=== PATIENT | female | born 1960 | race Caucasian/White ===

== ENCOUNTER → 2018-07-24 15:24 | Outpatient (CLI) | payer OTHER, SELFPAY ==
--- NOTE | 2018-07-24 | DI.US.S_ITS ---
PROCEDURE: US PELVIC COMPLETE INDICATIONS: ROUTINE TECHNIQUE: Real-time scanning was performed of the pelvic organs, with image documentation. Additional endovaginal scanning was necessary due to incomplete visualization of the adnexal and endometrial structures by transabdominal scanning. COMPARISON: [facility], , PELVIC COMPLETE, 07/04/2016, 8:37. FINDINGS: Transabdominal scanning: Limited scanning through the kidneys shows no hydronephrosis. No pathologic free abdominal or pelvic fluid. Endovaginal scanning: Uterus: Uterus is normal in size at 7.7 x 4.1 x 3.0 cm. The endometrium measures 3.1 mm in combined thickness. 2 intramural fibroids, largest measuring 1.6 x 1.5 x 1.6 cm appearing similar to prior exam. Ovaries: Right ovary not visualized. A normal-sized measuring 1.9 x 1.4 x 1.7 cm. There are multiple punctate non-shadowing echogenic foci seen likely of no clinical significance. IMPRESSION: 1. Right ovary not visualized and grossly normal appearance of the left ovary. 2. No change in 2 small intramural fibroids. Dictated by: Lui Crisostomo [facility] Interpreted: Fidencio Soto MD on 07/24/2018 at 16:40 Approved by: Fidencio Soto M.D. on 07/24/2018 at 17:25
--- NOTE | 2018-07-24 | DI.MG.S_ITS ---
BILATERAL DIGITAL SCREENING MAMMOGRAM 3D/2D WITH CAD: 07/24/2018 CLINICAL: Routine screening. Family history of breast cancer. Comparison is made to exam dated: 07/04/2016 mammogram - [facility]. There are scattered fibroglandular elements in both breasts. Current study was also evaluated with a Computer Aided Detection (CAD) system. No significant masses, calcifications, or other findings are seen in either breast. There has been no significant interval change. IMPRESSION: NEGATIVE There is no mammographic evidence of malignancy. A 1 year screening mammogram is recommended. This exam was interpreted at Station ID: [id number]. NOTE: For mammograms, a report in lay terms will be sent to the patient. Approximately 15% of breast malignancies will not be visualized mammographically. In the management of a palpable breast mass, a negative mammogram must not discourage biopsy of a clinically suspicious lesion. Electronically Signed By: Jose menezes/roseline:07/24/2018 16:03:29 letter sent: Normal Exam ACR BI-RADS Category 1: Negative [id number]
== END ==
PROVIDERS: PCP Family Medicine; Visit Provider Family Medicine
DX: Z12.31 Encounter for screening mammogram for malignant neoplasm of breast (principal); D25.1 Intramural leiomyoma of uterus; Z80.3 Family history of malignant neoplasm of breast
CPT/HCPCS: 76856; 77063; 77067

== ENCOUNTER → 2018-09-23 18:35 | Outpatient (CLI) | payer OTHER, SELFPAY | PROVIDERS: PCP Family Medicine; Visit Provider Physician Assistant | DX: N39.0 Urinary tract infection, site not specified (principal) | CPT/HCPCS: 87086 ==

== ENCOUNTER → 2018-11-05 13:52 | Outpatient (CLI) | payer OTHER, SELFPAY ==
[2018-11-05 15:27] LABS: Estimated Glomerular Filt Rate > 60.0 mL/min (>60)
== END ==
PROVIDERS: PCP Family Medicine; Visit Provider Family Medicine
DX: R10.31 Right lower quadrant pain (principal)
CPT/HCPCS: 36415; 82565

== ENCOUNTER → 2018-11-06 13:50 | Outpatient (CLI) | payer OTHER, SELFPAY ==
--- NOTE | 2018-11-06 | DI.CT.S_ITS ---
PROCEDURE: CT ABDOMEN PELVIS W CON INDICATIONS: ABDOMINAL PAIN/RIGHT LOWER QUADRANT TECHNIQUE: After the administration of oral and intravenous contrast, 5 mm thick sections acquired from the diaphragms to the symphysis. 5 mm thick coronal and sagittal reformats were performed. For radiation dose reduction, the following was used: automated exposure control, adjustment of mA and/or kV according to patient size. COMPARISON: None. FINDINGS: Image quality: Excellent. ABDOMEN: Lung bases: Lung bases are clear. Heart size is normal. Solid organs: Liver is normal in size and enhancement. There is a 1.3 x 1.6 cm hypodensity that measures higher than water density, at the junction of the right anterior and left medial hepatic segments, seen on series 2 image 24. Gallbladder appears partially contracted. Biliary system is non-dilated. Pancreas enhances normally. Spleen is normal in size and enhancement. No adrenal nodules. Kidneys are normal in size and enhancement, without hydronephrosis. Peritoneum and bowel: Stomach, small bowel, and colon loops are normal in caliber and wall thickness. No free fluid or air. Nodes and vessels: No retroperitoneal or mesenteric adenopathy. Aorta and inferior vena cava are normal in caliber. Miscellaneous: No ventral hernias. PELVIS: Genitourinary: Bladder wall thickness is normal. Miscellaneous: No inguinal hernias or adenopathy. At the right lower quadrant a normal appendix is identified. No inflammation in this area is present. Bones: No suspicious bony lesions. No vertebral body compression fractures. IMPRESSION: Isolated finding of the 1.3 x 1.6 cm superior hepatic hypodensity that does not appear to represent a cyst. This structure may represent an atypical hemangioma and is close to the anterior epigastrium skin surface such that a targeted single organ ultrasound directed to that site may assist in establishing etiology. Normal appendix right lower quadrant. Source of right lower quadrant pain is not seen. Dictated by: Ed El M.D. on 11/06/2018 at 14:57 Approved by: Ed El M.D. on 11/06/2018 at 15:00
== END ==
PROVIDERS: PCP Family Medicine; Visit Provider Family Medicine
DX: R10.31 Right lower quadrant pain (principal)
CPT/HCPCS: 74177

== ENCOUNTER → 2018-11-18 08:03 | Outpatient (CLI) | payer OTHER, SELFPAY ==
--- NOTE | 2018-11-18 | DI.US.S_ITS ---
PROCEDURE: US ABDOMEN LIMITED INDICATIONS: LESION OF LIVER TECHNIQUE: Real-time focused scanning was performed of the abdomen, with image documentation. COMPARISON: [facility], CT, CT ABDOMEN PELVIS W CON, 11/06/2018, 14:36. FINDINGS: On the prior recent CT examination, there was a low-density lesion seen within the central anterior liver. This lesion does not seen on these ultrasound images. The liver demonstrates normal size. The liver demonstrates generalized increased echogenicity. This decreases ultrasound sensitivity for detection of hepatic masses. IMPRESSION: Nonvisualization by ultrasound of the low-density lesion seen on the prior CT. For further evaluation, please consider a dedicated liver protocol MRI, without and with contrast (assuming that there is no contraindication). The liver demonstrates increased echogenicity. This finding is nonspecific, yet it is attributed to fatty infiltration. Dictated by: Gilbert Allen M.D. on 11/18/2018 at 7:42 Approved by: Gilbert Allen M.D. on 11/18/2018 at 7:44
== END ==
PROVIDERS: PCP Family Medicine; Visit Provider Family Medicine
DX: K76.9 Liver disease, unspecified (principal)
CPT/HCPCS: 76705

== ENCOUNTER → 2019-05-03 13:48 | Outpatient (CLI) | payer OTHER, SELFPAY | PROVIDERS: PCP Family Medicine; Visit Provider Nurse Practitioner | DX: R30.0 Dysuria (principal) | CPT/HCPCS: 87086 ==

== ENCOUNTER → 2020-06-23 14:31 | Outpatient (CLI) | payer OTHER, SELFPAY ==
[2020-06-23] MEDS: COVID-19 VACC(MODERNA-1)/PF 100 MCG/0.5 ML VIAL IM (14:38)
== END ==
PROVIDERS: PCP Family Medicine; Visit Provider Internal Medicine
DX: Z23 Encounter for immunization (principal)
CPT/HCPCS: 0011A; 91301

== ENCOUNTER → 2020-07-21 14:10 | Outpatient (CLI) | payer OTHER, SELFPAY ==
[2020-07-21] MEDS: COVID-19 VACC #2, MRNA(MOD) 100 MCG/0.5 ML VIAL IM (14:20)
== END ==
PROVIDERS: PCP Family Medicine; Visit Provider Internal Medicine
DX: Z23 Encounter for immunization (principal)
CPT/HCPCS: 0012A; 91301

== ENCOUNTER → 2020-08-11 11:48 | Outpatient (CLI) | payer OTHER, SELFPAY ==
[2020-08-11 12:16] LABS: Add Manual Diff / Slide Review NO; Basophils Absolute Auto 0 /uL (0-100); Basophils Percent Auto 0.9 % (0-2); Eosinophils Absolute Auto 100 /uL (0-450); Eosinophils Percent Auto 1.6 % (2-4); Hematocrit 41.9 % (36-46); Hemoglobin 14.2 g/dL (12.0-16.0); Lymphocytes Absolute Auto 1000 /uL (1100-4500); Mean Corpuscular Hemoglobin 31.1 PG (26-34); Mean Corpuscular Volume 91.6 fL (80-100); Monocytes Absolute Auto 500 /uL (0-900); Monocytes Percent Auto 9.6 % (3-14); Neutrophils Absolute Auto 3300 /uL (1500-7000); Neutrophils Percent Auto 67.9 % (50-75); Platelet Count 174 X10^3/uL (150-400); Red Blood Cell Count 4.57 X10^6/uL (4.0-5.2); Red Cell Distribution Width 13.3 % (11.6-14.8); White Blood Cell Count 4.8 X10^3/uL (4.5-11.0)
[2020-08-11 12:38] LABS: Alanine Aminotransferase 26 IU/L (<35); Albumin 4.3 g/dL (3.5-5.0); Albumin Globulin Ratio 1.5 (1.0-2.8); Alkaline Phosphatase 79 U/L (38-126); Aspartate Aminotransferase 28 IU/L (14-36); BUN Creatinine Ratio 17.3 (6-22); Bilirubin Total 0.5 mg/dL (0.2-1.3); Blood Urea Nitrogen 13 mg/dL (7-17); Calcium 9.7 mg/dL (8.4-10.2); Carbon Dioxide 27 mmol/L (22-32); Chloride 106 mmol/L (98-107); Cholesterol 165 mg/dL (140-199); Estimated Glomerular Filt Rate > 60.0 mL/min (>60); Globulin 2.8 g/dL (1.7-4.1); Glucose 103 mg/dL (80-110); HDL Cholesterol 51 mg/dL (40-60); HEMOLYSIS < 15 (0-50); LDL Cholesterol Calculated 94 mg/dL (<100); Potassium 4.2 mmol/L (3.4-5.1); Sodium 137 mmol/L (137-145); Total Protein 7.1 g/dL (6.3-8.2); Triglycerides 101 mg/dL (35-150)
[2020-08-11 17:49] LABS: Vitamin D 25 Hydroxy (D3) 28.9 ng/mL (30.0-100.0)
[2020-08-12 07:14] LABS: HBsAg Screen Negative (Negative); Hepatitis A Antibody IgM Negative (Negative); Hepatitis B Core Antibody IgM Negative (Negative); Hepatitis C Antibody <0.1 s/co ratio (0.0-0.9)
== END ==
PROVIDERS: PCP Registered Nurse; Referring Provider Registered Nurse; Visit Provider Registered Nurse
DX: D64.9 Anemia, unspecified (principal); K76.9 Liver disease, unspecified; Z78.0 Asymptomatic menopausal state; E78.5 Hyperlipidemia, unspecified
CPT/HCPCS: 36415; 80053; 80061; 80074; 82306; 85025

== ENCOUNTER 2021-05-16 13:45 | Inpatient (IN) | payer OTHER, SELFPAY ==
[2021-05-16] VITALS (15 sets, daily range): BP systolic 131–185; BP diastolic 69–103; PULSE 103–130; RESP 16–23; TEMP 37.6–38.7; O2SAT 95–99; BMI 41.9
--- NOTE | 2021-05-16 13:52 | DI.RAD.S_ITS ---
PROCEDURE: XR CHEST 1V INDICATIONS: chest pain TECHNIQUE: One view of the chest was acquired. COMPARISON: None. FINDINGS: Surgical changes and devices: None. Lungs and pleura: Lungs are clear. No pleural effusions or pneumothorax. Mediastinum: Mediastinal contours appear normal. Heart size is normal. Bones and chest wall: No suspicious bony lesions. Overlying soft tissues appear unremarkable. IMPRESSION: No acute cardiopulmonary disease process. Dictated by: Emili Coto MD, PhD on 05/16/2021 at 14:46 Approved by: Emili Coto MD, PhD on 05/16/2021 at 14:46
[2021-05-16] MEDS: ASPIRIN 81 MG CHEW TAB 324 MG PO (13:59)
[2021-05-16 14:09] LABS: Add Manual Diff / Slide Review NO; Basophils Absolute Auto 0 /uL (0-100); Basophils Percent Auto 0.3 % (0-2); Eosinophils Absolute Auto 0 /uL (0-450); Eosinophils Percent Auto 0.1 % (2-4); Hematocrit 41.4 % (36-46); Hemoglobin 14.1 g/dL (12.0-16.0); Lymphocytes Absolute Auto 300 /uL (1100-4500); Lymphocytes Percent Auto 2.7 % (25-40); Mean Corpuscular Hemoglobin 31.4 PG (26-34); Mean Corpuscular Volume 92.6 fL (80-100); Monocytes Absolute Auto 700 /uL (0-900); Monocytes Percent Auto 5.5 % (3-14); Neutrophils Absolute Auto 11500 /uL (1500-7000); Neutrophils Percent Auto 91.4 % (50-75); Platelet Count 131 X10^3/uL (150-400); Red Blood Cell Count 4.47 X10^6/uL (4.0-5.2); Red Cell Distribution Width 13.5 % (11.6-14.8); White Blood Cell Count 12.6 X10^3/uL (4.5-11.0)
[2021-05-16 14:19] LABS: INR 1.2 (0.9-1.3); Prothrombin Time 13.6 SECONDS (10.1-12.7)
[2021-05-16 14:22] LABS: PTT Partial Thromboplastin Tim 31 SECONDS (26.4-36.2)
[2021-05-16 14:30] LABS: Alanine Aminotransferase 30 IU/L (<35); Albumin 4.5 g/dL (3.5-5.0); Albumin Globulin Ratio 1.6 (1.0-2.8); Alkaline Phosphatase 80 U/L (38-126); Aspartate Aminotransferase 33 IU/L (14-36); BUN Creatinine Ratio 13.9 (6-22); Bilirubin Total 1.2 mg/dL (0.2-1.3); Blood Urea Nitrogen 11 mg/dL (7-17); Calcium 9.4 mg/dL (8.4-10.2); Carbon Dioxide 25 mmol/L (22-32); Chloride 101 mmol/L (98-107); Creatine Kinase 61 U/L (30-135); Estimated Glomerular Filt Rate > 60.0 mL/min (>60); Globulin 2.9 g/dL (1.7-4.1); Glucose 130 mg/dL (80-110); HEMOLYSIS < 15 (0-50); Lipase 53 U/L (23-300); Potassium 3.9 mmol/L (3.4-5.1); Sodium 135 mmol/L (137-145); Total Protein 7.4 g/dL (6.3-8.2)
[2021-05-16 14:42] LABS: NT-proBNP (BNP-Adult 18+) 1960 pg/mL (<125); Troponin I 0.038 ng/mL (0.01-0.034)
[2021-05-16 15:09] LABS: COVID19 -Nasal RAPID Negative (Negative)
[2021-05-16 15:30] LABS: D Dimer 317 ng/mL (<230)
[2021-05-16 16:26] LABS: Troponin I 0.032 ng/mL (0.01-0.034)
--- NOTE | 2021-05-16 18:29 | ED_ITS ---
HPI - Chest Pain General Chief Complaint: Chest Pain Stated Complaint: Left arm pain/neck pain Time Seen by Provider: 05/16/21 13:52 Source: patient Mode of arrival: Ambulatory Limitations: no limitations History of Present Illness HPI narrative: Patient is a 61-year-old female. Here for evaluation of left arm pain and neck pain and chest discomfort. States that she woke up this morning with she describes as a burning sensation in her arms and legs and knees. She is vaccinated against COVID. Started having other potential COVID like symptoms to include headaches and subjective fevers. She decided to come and get tested for COVID. Initially went to the walk-in clinic. Was told that it was going to be several hours before she was seen. She was waiting in the parking lot to be seen when she started to have chest pressure and pain in her left arm. She has never had this in the past. Did not get worse with palpation and movement. No coughing. Decided to come to the emergency department. The time of my evaluation her symptoms have improved. She has never had risk stratification testing for coronary artery disease. She did receive aspirin prior to my evaluation. Related Data Home Medications Medication Instructions Recorded Confirmed cholecalciferol (vitamin D3) 10 #0 09/17/17 08/11/20 mcg (400 unit) chewable tablet (Vitamin D3) coQ10 (ubiquinol) 100 mg capsule #0 09/17/17 08/11/20 multivitamin (Multiple Vitamins) 1 tab PO QDAY #0 09/17/17 08/11/20 oregano oil 1,500 mg capsule 1,500 mg PO #0 09/17/17 08/11/20 d-mannose ea PO 08/11/20 08/11/20 honey 100 % topical gel (Manuka ea TOPICAL 08/11/20 08/11/20 Honey) milk thistle 500 mg capsule 500 mg PO DAILY 08/11/20 08/11/20 turmeric 400 mg capsule mg PO 08/11/20 08/11/20 Previous Rx's Medication Instructions Recorded albuterol sulfate 90 mcg/actuation 2 puff INHALATION Q4-6H PRN #18 g 08/11/20 aerosol inhaler Allergies Allergy/AdvReac Type Severity Reaction Status Date / Time ciprofloxacin [From CIPRO] AdvReac Unknown C. Diff Verified 08/11/20 11:09 Review of Systems Review of Systems ROS Unobtainable: All systems reviewed & are unremarkable except as noted in HPI and below Constitutional Constitutional: Reports system reviewed and no additional complaints, except as documented ENT Ears, Nose, Mouth, and Throat: Reports system reviewed and no additional complaints, except as documented Cardiovascular Cardiovascular: Reports system reviewed and no additional complaints, except as documented Respiratory Respiratory: Reports system reviewed and no additional complaints, except as documented Gastrointestinal Gastrointestinal: Reports system reviewed and no additional complaints, except as documented Genitourinary Genitourinary: Reports system reviewed and no additional complaints, except as documented Musculoskeletal Musculoskeletal: Reports system reviewed and no additional complaints, except as documented Integumentary/Breasts Skin/Breast: Reports system reviewed and no additional complaints, except as documented Neurologic Neurologic: Reports system reviewed and no additional complaints, except as documented Hematologic/Lymphatic On Anticoagulants: No Allergic/Immunologic Allergic/Immunologic: Reports system reviewed and no additional complaints, except as documented Patient History Medical History Adrenal abnormality (~1989) Amenorrhea (~2015) Anemia (~2010) Asthma (~2008) Chicken pox (~1962) Chronic back pain (~2018) Chronic cough Colon polyps (~1999) Fibroids (~2016) Heavy menstrual period (~2010) Kidney disease (~1988) Liver disease (~2018) Low back pain (~2017) Measles (~1965) Menopause (~2016) Mononucleosis (~1978) Mumps (~1965) Painful menstrual periods Proteinuria (~1988) Surgical History Anesthesia History of colonoscopy History of laparoscopy (~1991) Status post biopsy of uterine cervix (~2018) Family History Father Diabetes mellitus History of heart disease Hypertension Colon cancer Hyperlipidemia Mother Ovarian cancer Smoker Grandfather Cancer Grandmother Diabetes mellitus Colon cancer Grandmother Alzheimer's disease Breast cancer Grandfather History of heart disease Family/Other Asthma Social History household members: none Smoking Status: Never smoker alcohol intake: current substance use type: does not use Smoking Status: Never smoker Exam Initial Vital Signs Initial Vital Signs: Vital Signs Temperature 99.7 F H 05/16/21 14:17 Pulse Rate 123 H 05/16/21 14:17 Respiratory Rate 18 05/16/21 14:17 Blood Pressure 185/103 H 05/16/21 14:17 Pulse Oximetry 99 05/16/21 14:17 Const General: cooperative, healthy appearing, comfortable and well developed [facility] Head: normal to inspection and normocephalic Eyes General: appearance normal, both eyes and all related structures Chest Chest: normal inspection of the chest Resp Effort & Inspection: normal respiratory effort Auscultation: clear to auscultation bilaterally Cardio Rate: tachycardic Rhythm: regular rhythm Pulses: radial pulses present GI Inspection: normal to inspection and non-distended Palpation: soft Back/Spine/Pelvis Back: normal to inspection Skin General: no rashes or lesions noted Neuro General: patient alert, patient awake, patient oriented x3 and moves all extremities Cognition: normal cognition Speech: speech normal Gait: normal gait Extrem General: normal to inspection, capillary refill normal and No edema Psych Appearance: grossly normal and well kempt Course Orders Ordered: ED Orders 05/16/21 15:55 Trop I [Troponin I] Stat 05/16/21 18:29 CT angio chest PE protocol Stat 05/16/21 18:30 Urine Culture Stat Urine Microscopic Stat 05/16/21 20:00 NM isabela perf SPECT rest & str Urgent 05/16/21 20:01 EC echo doppler complete Urgent Education, smoking cessation ONGOING 05/16/21 20:57 A1C [Hemoglobin A1C% w Est Avg Glu] Stat Lipid Panel Routine Magnesium Urgent Procalcitonin Urgent TSH w/ Reflex to FT4 Stat Troponin I Q8H 05/16/21 21:10 Respiratory Panel (Film Array) Stat 05/17/21 04:00 Troponin I Q8H 05/17/21 05:00 Basic Metabolic Panel Routine Complete Blood Count AUTO DIFF Routine NT-proBNP (BNP-Adult 18+) Routine Acetaminophen (Acetaminophen 325 Mg Tablet) 650 mg PO Q6HR PRN PRN Reason: Fever/Mild Pain (1-3) Last Admin: 05/16/21 21:28 Dose: 650 mg Documented by: KKNOTT Enoxaparin Sodium (Enoxaparin 40 Mg/0.4 Ml Syringe) 40 mg SUBCUT DAILY HOLGER Lactated Ringer's (Lactated Ringers) 1,000 mls @ 1,000 mls/hr IV BOLUS ONE Stop: 05/17/21 01:44 Lisinopril (Lisinopril 10 Mg Tablet) 10 mg PO DAILY HOLGER Morphine Sulfate (Morphine 2 Mg/Ml Inj) 2 mg IV Q5MIN PRN PRN Reason: Chest Pain Naloxone HCl (Naloxone 0.4 Mg/Ml Vial) 0.2 mg IV Q2MIN PRN PRN Reason: Opiate Reversal Nitroglycerin (Nitroglycerin 0.4 Mg Sl Tab) 0.4 mg SL [id number] PRN PRN Reason: Chest Pain Discontinued Medications Aspirin (Aspirin 81 Mg Chew Tab) 324 mg PO NOW ONE Stop: 05/16/21 13:53 Last Admin: 05/16/21 13:59 Dose: 324 mg Documented by: VINCENT Lactated Ringer's (Lactated Ringers) 500 mls @ 500 mls/hr IV BOLUS ONE Stop: 05/17/21 01:39 Ketorolac Tromethamine (Ketorolac 30 Mg/Ml Vial) 30 mg IV NOW ONE Stop: 05/16/21 21:12 Last Admin: 05/16/21 21:30 Dose: 30 mg Documented by: LUCIAN Lisinopril (Lisinopril 10 Mg Tablet) 10 mg PO NOW ONE Stop: 05/16/21 20:09 Last Admin: 05/16/21 21:08 Dose: 10 mg Documented by: LUCIAN Vital Signs Vital signs: Vital Signs - 8 hr 05/16/21 17:00 05/16/21 17:30 05/16/21 18:00 Pulse Rate 112 H 112 H 113 H Respiratory Rate 16 19 20 Blood Pressure 142/82 H 131/70 Pulse Oximetry 97 95 96 05/16/21 18:49 05/16/21 18:57 05/16/21 19:00 Pulse Rate 108 H 107 H 103 H Respiratory Rate 23 19 Blood Pressure 149/74 H 147/76 H Pulse Oximetry 98 95 99 05/16/21 19:30 Pulse Rate 111 H Respiratory Rate 22 Blood Pressure 151/71 H Pulse Oximetry 98 MDM - Chest Pain Lab Data Attestation: I reviewed the patient's lab results. Result diagrams: 05/16/21 14:00 05/16/21 14:00 Labs: Lab Results 05/16/21 05/16/21 05/16/21 Range/Units 14:00 14:00 14:00 WBC 12.6 H (4.5-11.0) X10^3/uL RBC 4.47 (4.0-5.2) X10^6/uL Hgb 14.1 (12.0-16.0) g/dL Hct 41.4 (36-46) % MCV 92.6 (80-100) fL MCH 31.4 (26-34) PG MCHC 34.0 (30-36) % RDW 13.5 (11.6-14.8) % Plt Count 131 L (150-400) X10^3/uL Neut % (Auto) 91.4 H (50-75) % Lymph % (Auto) 2.7 L (25-40) % Park % (Auto) 5.5 (3-14) % Eos % (Auto) 0.1 L (2-4) % Baso % (Auto) 0.3 (0-2) % Neut # (Auto) 54167 H (5610-7578) /uL Lymph # (Auto) 300 L (7735-1695) /uL Park # (Auto) 700 (0-900) /uL Eos # (Auto) 0 (0-450) /uL Baso # (Auto) 0 (0-100) /uL PT 13.6 H (10.1-12.7) SECONDS INR 1.2 (0.9-1.3) APTT 31 (26.4-36.2) SECONDS D-Dimer (<230) ng/mL Sodium 135 L (137-145) mmol/L Potassium 3.9 (3.4-5.1) mmol/L Chloride 101 (98-107) mmol/L Carbon Dioxide 25 (22-32) mmol/L BUN 11 (7-17) mg/dL Creatinine 0.79 (0.52-1.04) mg/dL Estimated GFR > 60.0 (>60) mL/min BUN/Creatinine Ratio 13.9 (6-22) Glucose 130 H (80-110) mg/dL Calcium 9.4 (8.4-10.2) mg/dL Total Bilirubin 1.2 (0.2-1.3) mg/dL AST 33 (14-36) IU/L ALT 30 (<35) IU/L Alkaline Phosphatase 80 (38-126) U/L Total Creatine Kinase 61 (30-135) U/L CK-MB (CK-2) TNP CK-MB (CK-2) Rel Index TNP Troponin I 0.038 H (0.01-0.034) ng/mL NT-Pro-B Natriuret Pep 1960 H (<125) pg/mL Total Protein 7.4 (6.3-8.2) g/dL Albumin 4.5 (3.5-5.0) g/dL Globulin 2.9 (1.7-4.1) g/dL Albumin/Globulin Ratio 1.6 (1.0-2.8) Lipase 53 (23-300) U/L Urine RBC (0-5/HPF) Urine WBC (0-5/HPF) Ur Squamous Epith Cells (0-5/HPF) Amorphous Sediment Urine Bacteria (None) Ur Culture Indicated? SARS-CoV-2 (PCR) (Negative) 05/16/21 05/16/21 05/16/21 Range/Units 14:00 14:26 15:55 WBC (4.5-11.0) X10^3/uL RBC (4.0-5.2) X10^6/uL Hgb (12.0-16.0) g/dL Hct (36-46) % MCV (80-100) fL MCH (26-34) PG MCHC (30-36) % RDW (11.6-14.8) % Plt Count (150-400) X10^3/uL Neut % (Auto) (50-75) % Lymph % (Auto) (25-40) % Park % (Auto) (3-14) % Eos % (Auto) (2-4) % Baso % (Auto) (0-2) % Neut # (Auto) (6308-0555) /uL Lymph # (Auto) (6217-8233) /uL Park # (Auto) (0-900) /uL Eos # (Auto) (0-450) /uL Baso # (Auto) (0-100) /uL PT (10.1-12.7) SECONDS INR (0.9-1.3) APTT (26.4-36.2) SECONDS D-Dimer 317 H (<230) ng/mL Sodium (137-145) mmol/L Potassium (3.4-5.1) mmol/L Chloride (98-107) mmol/L Carbon Dioxide (22-32) mmol/L BUN (7-17) mg/dL Creatinine (0.52-1.04) mg/dL Estimated GFR (>60) mL/min BUN/Creatinine Ratio (6-22) Glucose (80-110) mg/dL Calcium (8.4-10.2) mg/dL Total Bilirubin (0.2-1.3) mg/dL AST (14-36) IU/L ALT (<35) IU/L Alkaline Phosphatase (38-126) U/L Total Creatine Kinase (30-135) U/L CK-MB (CK-2) CK-MB (CK-2) Rel Index Troponin I 0.032 (0.01-0.034) ng/mL NT-Pro-B Natriuret Pep (<125) pg/mL Total Protein (6.3-8.2) g/dL Albumin (3.5-5.0) g/dL Globulin (1.7-4.1) g/dL Albumin/Globulin Ratio (1.0-2.8) Lipase (23-300) U/L Urine RBC (0-5/HPF) Urine WBC (0-5/HPF) Ur Squamous Epith Cells (0-5/HPF) Amorphous Sediment Urine Bacteria (None) Ur Culture Indicated? SARS-CoV-2 (PCR) Negative (Negative) 05/16/21 Range/Units 18:30 WBC (4.5-11.0) X10^3/uL RBC (4.0-5.2) X10^6/uL Hgb (12.0-16.0) g/dL Hct (36-46) % MCV (80-100) fL MCH (26-34) PG MCHC (30-36) % RDW (11.6-14.8) % Plt Count (150-400) X10^3/uL Neut % (Auto) (50-75) % Lymph % (Auto) (25-40) % Park % (Auto) (3-14) % Eos % (Auto) (2-4) % Baso % (Auto) (0-2) % Neut # (Auto) (1931-5467) /uL Lymph # (Auto) (7074-3866) /uL Park # (Auto) (0-900) /uL Eos # (Auto) (0-450) /uL Baso # (Auto) (0-100) /uL PT (10.1-12.7) SECONDS INR (0.9-1.3) APTT (26.4-36.2) SECONDS D-Dimer (<230) ng/mL Sodium (137-145) mmol/L Potassium (3.4-5.1) mmol/L Chloride (98-107) mmol/L Carbon Dioxide (22-32) mmol/L BUN (7-17) mg/dL Creatinine (0.52-1.04) mg/dL Estimated GFR (>60) mL/min BUN/Creatinine Ratio (6-22) Glucose (80-110) mg/dL Calcium (8.4-10.2) mg/dL Total Bilirubin (0.2-1.3) mg/dL AST (14-36) IU/L ALT (<35) IU/L Alkaline Phosphatase (38-126) U/L Total Creatine Kinase (30-135) U/L CK-MB (CK-2) CK-MB (CK-2) Rel Index Troponin I (0.01-0.034) ng/mL NT-Pro-B Natriuret Pep (<125) pg/mL Total Protein (6.3-8.2) g/dL Albumin (3.5-5.0) g/dL Globulin (1.7-4.1) g/dL Albumin/Globulin Ratio (1.0-2.8) Lipase (23-300) U/L Urine RBC 1-5/hpf (0-5/HPF) Urine WBC 1-5/hpf (0-5/HPF) Ur Squamous Epith Cells 0-1 /hpf (0-5/HPF) Amorphous Sediment 1+ Urine Bacteria Occasional (0-1) (None) Ur Culture Indicated? Cult not indicated SARS-CoV-2 (PCR) (Negative) Urine Dip Bedside Urine Glucose Negative Bedside Urine Bilirubin - Negative Bedside Urine Ketone +/- 5 Urine Specific [place] 1.015 Bedside Urine Occult Blood +/- Bedside Urine pH 6.0 Bedside Urine Protein - Negative Bedside Urine Urobilinogen - Negative Bedside Urine Nitrite - Negative Bedside Urine Leukocytes - Negative Esterase Imaging Data Chest x-ray: Radiologist's Impression: [address] [address] XRay Report Signed Patient: Roxanne Vizcaino MR#: [id number] : 1960 Acct:[id number] Age/Sex: 61 / F Date of Service: 05/16/21 Loc: ED Accession Number: [id number] ?? Procedure: XR chest 1V Ordering Provider: Avis Freeman D.O. PROCEDURE:? XR CHEST 1V ? INDICATIONS:? chest pain ? TECHNIQUE:? One view of the chest was acquired.? ? COMPARISON:? None. ? FINDINGS:? ? Surgical changes and devices:? None.? ? Lungs and pleura:? Lungs are clear.? No pleural effusions or pneumothorax.? ? Mediastinum:? Mediastinal contours appear normal.? Heart size is normal.? ? Bones and chest wall:? No suspicious bony lesions.? Overlying soft tissues appear unremarkable.? ? IMPRESSION:? No acute cardiopulmonary disease process. ? ? Dictated by: Emili Coto MD, PhD on 05/16/2021 at 14:46 ? ? Approved by: Emili Coto MD, PhD on 05/16/2021 at 14:46 CT scan - chest: Radiologist's Impression: [address] [address] [address] Scan Report Signed Patient: Roxanne Vizcaino MR#: [id number] : 1960 Acct:[id number] Age/Sex: 61 / F Date of Service: 05/16/21 Loc: ED Accession Number: [id number] ?? Procedure: CT angio chest PE protocol Ordering Provider: Cem Lopez D.O. PROCEDURE:? CT ANGIO CHEST PE PROTOCOL ? INDICATIONS:? Chest pain, shortness of breath, tachycardia ? TECHNIQUE:? After the administration of intravenous contrast, 2 mm thick sections acquired from the pulmonary apices to the posterior costophrenic angles.? 3-dimensional maximum intensity projection (MIP) coronal and sagittal reformats were then acquired through the thorax.? For radiation dose reduction, the following was used:? automated exposure control, adjustment of mA and/or kV according to patient size.? ? COMPARISON:? None. ? FINDINGS:? Image quality:? Excellent.? ? Pulmonary arteries:? Pulmonary arteries are normal in size, and demonstrate no intraluminal filling defects to suggest central pulmonary embolism.? ? Lungs and pleura:? Lungs are clear.? No pleural effusions or pneumothorax.? Central and peripheral airways are patent.? ? Mediastinum:? Heart size is normal, without pericardial effusion.? No mediastinal or hilar adenopathy.? Thoracic aorta is normal in caliber and enhancement.? Esophagus is normal in caliber, without hiatal hernia.? ? Bones and chest wall:? No suspicious bony lesions.? Ribs and thoracic spine appear intact throughout.? Thyroid gland is unremarkable as imaged..? No axillary or supraclavicular adenopathy.? ? Abdomen:? Visualized upper abdominal solid organs appear normal in the early ar terial phase of enhancement.? ? IMPRESSION:? ? 1. No evidence acute pulmonary emboli. ? 2. No evidence acute pulmonary process.? ? ? Dictated by: Manuel Moreira M.D. on 05/16/2021 at 19:34 ? ? Approved by: Manuel Moreira M.D. on 05/16/2021 at 19:37? ECG Data Attestation: I personally reviewed and interpreted this ECG as follows: Interpretation: Sinus rhythm Tachycardia with a ventricular rate of 126 Normal axis Normal QRS Normal QTC No ST T wave changes MDM Narrative Medical decision making narrative: Chest x-ray is normal come EKG is unremarkable except for tachycardia. age adjusted D-dimer was elevated. CTA does not show any signs of pulmonary embolism. Initial troponin elevated. Repeat troponin is improved given her presentation of chest discomfort and left arm discomfort in the initial elevated troponin patient should be admitted to the hospital for further risk stratification. I did discuss this with the patient and she expressed understanding agreement. Did discuss the case with ADRIAN Chou the [facility] provider who will admit for further evaluation and treatment. Discharge Plan Departure Patient Disposition: Admitted as Observation Clinical Impression: Chest pain Admit Date/Time: 05/16/21 20:08 Admit Provider: Ila Chou
--- NOTE | 2021-05-16 18:29 | DI.CT.S_ITS ---
PROCEDURE: CT ANGIO CHEST PE PROTOCOL INDICATIONS: Chest pain, shortness of breath, tachycardia TECHNIQUE: After the administration of intravenous contrast, 2 mm thick sections acquired from the pulmonary apices to the posterior costophrenic angles. 3-dimensional maximum intensity projection (MIP) coronal and sagittal reformats were then acquired through the thorax. For radiation dose reduction, the following was used: automated exposure control, adjustment of mA and/or kV according to patient size. COMPARISON: None. FINDINGS: Image quality: Excellent. Pulmonary arteries: Pulmonary arteries are normal in size, and demonstrate no intraluminal filling defects to suggest central pulmonary embolism. Lungs and pleura: Lungs are clear. No pleural effusions or pneumothorax. Central and peripheral airways are patent. Mediastinum: Heart size is normal, without pericardial effusion. No mediastinal or hilar adenopathy. Thoracic aorta is normal in caliber and enhancement. Esophagus is normal in caliber, without hiatal hernia. Bones and chest wall: No suspicious bony lesions. Ribs and thoracic spine appear intact throughout. Thyroid gland is unremarkable as imaged.. No axillary or supraclavicular adenopathy. Abdomen: Visualized upper abdominal solid organs appear normal in the early arterial phase of enhancement. IMPRESSION: 1. No evidence acute pulmonary emboli. 2. No evidence acute pulmonary process. Dictated by: Manuel Moreira M.D. on 05/16/2021 at 19:34 Approved by: Manuel Moreira M.D. on 05/16/2021 at 19:37
[2021-05-16 18:45] LABS: Amorphous Sediment Urine 1+; Bacteria Urine Occasional (0-1); Culture Indicated Urine Cult Not Indicated; RBC Urine 1-5/HPF (0-5/HPF); Squamous Epithelial Cell Urine 0-1 /HPF (0-5/HPF); WBC Urine 1-5/HPF (0-5/HPF)
--- NOTE | 2021-05-16 20:01 | DI.ECHO.S_ITS ---
[facility] +---------+ : : [address] : [address] [address] : : : : [id number] : : : : Phone: [phone]+ Echocardiogram Report + + :Name: NIKITA BARNETT Study Date: 05/17/2021 Height: 66 in : :[facility] ReadingLocation: Weight: 260 lb : : Gender: Female BSA: 2.2 m2 : :: 1960 Age: 61 yrs BP: 127/59 mmHg: :Reason For Study: Elevated Troponin, CP : : Performed By: Say Biggs : :Referring: BONNIE MAZARIEGOS : + + Interpretation Summary The left ventricle is normal in size and wall thickness. Left ventricular systolic function appears normal without focal wall motion abnormalities. The ejection fraction is estimated to be 55-60%. Diastolic function could not be accurately assessed due to contradictory data. The right ventricle is normal in size and function. The right ventricular systolic pressure is estimated to be at least 25 mmHg based on an estimated right atrial pressure of 3 mm Hg. The left atrial size is normal. Borderline right atrial enlargement. There is no significant valvular heart disease. The aortic root is normal size. Procedure: A two-dimensional transthoracic echocardiogram with color flow and Doppler was performed. There is no prior echocardiogram noted for this patient. Image quality technically adequate, however, aquisition difficult due to patient position and trouble breathing. The patient was in normal sinus rhythm during the exam. Left Ventricle: The left ventricle is normal in size and wall thickness. Left ventricular systolic function appears normal without focal wall motion abnormalities. The ejection fraction is estimated to be 55-60%. Diastolic function could not be accurately assessed due to contradictory data. Right Ventricle: The right ventricle is normal in size and function. Atria: The left atrial size is normal. Borderline right atrial enlargement. There is no Doppler evidence for an interatrial shunt. Mitral Valve: The mitral valve is normal. There is trace mitral regurgitation. Aortic Valve: The aortic valve is trileaflet. The aortic valve opens well. No aortic regurgitation is present. Tricuspid Valve: The tricuspid valve is normal. There is mild tricuspid regurgitation. The right ventricular systolic pressure is estimated to be at least 25 mmHg based on an estimated right atrial pressure of 3 mm Hg. Pulmonic Valve: The pulmonic valve is normal in structure and function. There is no significant valvular heart disease. Great Vessels: The aortic root is normal size. The ascending aorta is normal in size. The aortic arch is normal in size. The IVC is of normal diameter and collapses greater than 50% with a sniff. This suggests a low right atrial pressure of 3 mm Hg. Pericardium/ Pleura There is no pericardial effusion. There is no pleural effusion. MMode/2D Measurements & Calculations LVIDd: 4.5 cm LVOT diam: 1.8 cm LVIDs: 3.6 cm Ao root diam: 2.7 cm FS: 19.6 % asc Aorta Diam: 2.7 cm IVSd: 0.95 cm Ao Arch Diam (Prox Trans): 2.7 cm LVPWd: 0.84 cm LV conrad. diameter/BSA (cm/m^2): 2.0 LV sys. diameter/BSA (cm/m^2): 1.6 LA A2 area: 20.8 cm2 RA long axis: 5.7 cm LA A4 area: 17.8 cm2 RA area: 18.3 cm2 LA length (vol): 5.9 cm RA vol: 50.1 ml LA vol: 52.7 ml RA : 22.4 ml/m2 LA vol index: 23.6 ml/m2 IVC diam: 1.8 cm TAPSE: 2.1 cm Doppler Measurements & Calculations Ao V2 max: 136.4 cm/sec LVOT Max Shawn: 108.2 cm/sec Ao V2 mean: 107.1 cm/sec LV V1 max P.7 mmHg Ao max P.4 mmHg LV V1 VTI: 21.2 cm Ao mean P.8 mmHg MIKEY(I,D): 2.0 cm2 Ao V2 VTI: 25.7 cm MIKEY(V,D): 1.9 cm2 sev ratio: 0.83 MIKEY indexed to BSA (cm^2/m^2): 0.90 MV E max shawn: 87.2 cm/sec TR max shawn: 236.6 cm/sec MV A max shawn: 40.4 cm/sec TR max P.4 mmHg MV E/A: 2.2 PA V2 max: 69.8 cm/sec Med Peak E' Shawn: 12.5 cm/sec PA V2 mean: 52.8 cm/sec E/E' med: 7.0 PA mean P.2 mmHg Lat Peak E' Shawn: 11.5 cm/sec PA pr(Accel): 55.0 mmHg E/E' lat: 7.6 E/e' average: 7.3 MV dec time: 0.17 sec SV(LVOT): 51.5 ml Reading Physician:12:44 PM
[2021-05-16] MEDS: lisinopriL 10 MG TABLET PO (21:08)
[2021-05-16] MEDS: ACETAMINOPHEN 325 MG TABLET 650 MG PO (21:28)
[2021-05-16] MEDS: KETOROLAC 30 MG/ML VIAL IV (21:30)
[2021-05-16 21:34] LABS: Cholesterol 139 mg/dL (140-199); HDL Cholesterol 60 mg/dL (40-60); LDL Cholesterol Calculated 72 mg/dL (<100); Magnesium 1.6 mg/dL (1.6-2.3); Triglycerides 35 mg/dL (35-150)
[2021-05-16 21:47] LABS: Troponin I 0.023 ng/mL (0.01-0.034)
[2021-05-16 21:51] LABS: Procalcitonin 4.91 ng/mL (<0.5)
[2021-05-16 22:17] LABS: Adenovirus Not Detected (Not Detect); B. parapertussis Not Detected (Not Detecte); Bordetella pertussis Not Detected (Not Detecte); Chlamydophila pneumoniae Not Detected (Not Detect); Coronavirus 229E Not Detected (Not Detect); Coronavirus HKU1 Not Detected (Not Detect); Coronavirus NL 63 Not Detected (Not Detect); Coronavirus OC43 Not Detected (Not Detect); Human Metapneumovirus Not Detected (Not Detect); Human Rhinovirus/Enterovirus Not Detected (Not Detect); Influenza A Not Detected (Not Detect); Influenza B Not Detected (Not Detect); Mycoplasma pneumoniae Not Detected (Not Detect); Parainfluenza Virus 1 Not Detected (Not Detect); Parainfluenza Virus 2 Not Detected (Not Detect); Parainfluenza Virus 3 Not Detected (Not Detect); Parainfluenza Virus 4 Not Detected (Not Detect); Respiratory Syncytial Virus Not Detected (Not Detect); SARS- CoV-2 Not Detected (Not Detecte)
[2021-05-16 22:20] LABS: TSH w/ Reflex to FT4 0.63 uIU/mL (0.47-4.68)
--- NOTE | 2021-05-16 23:18 | P.HP_ITS ---
History of Present Illness History of Present Illness Date Patient Seen: 05/16/21 Time Patient Seen: 20:12 Chief complaint: Left arm pain/neck pain today Narrative: Roxanne Vizcaino is a 61-year-old female with a medical history of asthma, kidney disease, hyperlipidemia, obesity, and liver disease who presented to the emergency department after experiencing severe joint pain throughout her body burning tingling in hands and feet headache for the past 24 hours then this afternoon she developed chest pain the feeling of an elephant sitting on her chest that radiated down to her left arm the patient came to the emergency room. The patient states that the chest pain did not change with movement or activity. The chest pain resolved before being admitted to the ED. in the ED the patient was found to be tachycardic 111-120s blood pressures approximately 140/80. EKG demonstrated sinus tachycardia with a rate of [address] or T- wave changes. Patient demonstrated febrile 101.1, white count of 12.6 with neutrophils 11,500, platelets 131 glucose 130, D-dimer was elevated at 317, CTA was negative for PE or acute pulmonary processes, chest x-ray was negative for acute cardiopulmonary processes, BNP was 1960, lipase WNL, initial troponin was 0.038 demonstrating myocardial injury greater than 99 %, 2nd troponin 0.032, 3rd 0.023. Urine was negative. Patient reports having a headache, sore throat, all over body aches which is new for her severe joint pain, moderate neck pain and stiffness, difficulty with flextion, chest pain has resolved, patient denies loss of smell or taste, and has had a good appetite, no abdominal pain or vomiting. Had positive nausea, no diaphoresis, she did have shortness of breath when she was having chest pain but is resolved. Patient denies cough, blood in urine or stool, recent illness injury or trauma, no travel, no exposure to ill individuals. Patient only takes vitamins does not take any prescribed medications. Patient has been vaccinated against COVID-19. Patient admitted for chest pain, myocardial injury with troponin greater than 99th percentile, elevated blood pressure, and meets SIRS criteria, leukocytosis of unknown etiology-suspected sepsis/meningitis. Patient History Medical History Adrenal abnormality (~1989) Amenorrhea (~2015) Anemia (~2010) Asthma (~2008) Chicken pox (~1962) Chronic back pain (~2017) Chronic cough Colon polyps (~1999) Fibroids (~2016) Heavy menstrual period (~2010) Kidney disease (~1988) Liver disease (~2018) Low back pain (~2017) Measles (~1964) Menopause (~2016) Mononucleosis (~1978) Mumps (~1965) Painful menstrual periods Proteinuria (~1988) Surgical History Anesthesia History of colonoscopy History of laparoscopy (~1991) Status post biopsy of uterine cervix (~2018) Family & Social History Family History Father Diabetes mellitus History of heart disease Hypertension Colon cancer Hyperlipidemia Mother Ovarian cancer Smoker Grandfather Cancer Grandmother Diabetes mellitus Colon cancer Grandmother Alzheimer's disease Breast cancer Grandfather History of heart disease Family/Other Asthma Social History: household members none Prior Living Arrangements House Safety & Behavioral: Feels Safe in Current Yes Environment Been Physically Hurt or No Threatened By a Person Suicidal Ideation Description None Suicide Plan Description No Plan Tobacco & Substance use: Smoking Status Never smoker alcohol intake current alcohol intake frequency holiday/special occasion Meds Home Medications and Allergies Home Medications Medication Instructions Recorded Confirmed Type cholecalciferol (vitamin D3) 10 #0 09/17/17 08/11/20 History mcg (400 unit) chewable tablet (Vitamin D3) coQ10 (ubiquinol) 100 mg capsule #0 09/17/17 08/11/20 History multivitamin (Multiple Vitamins) 1 tab PO QDAY #0 09/17/17 08/11/20 History oregano oil 1,500 mg capsule 1,500 mg PO #0 09/17/17 08/11/20 History albuterol sulfate 90 mcg/actuation 2 puff INHALATION Q4-6H PRN #18 g 08/11/20 08/11/20 Rx aerosol inhaler d-mannose ea PO 08/11/20 08/11/20 History honey 100 % topical gel (Manuka ea TOPICAL 08/11/20 08/11/20 History Honey) milk thistle 500 mg capsule 500 mg PO DAILY 08/11/20 08/11/20 History turmeric 400 mg capsule mg PO 08/11/20 08/11/20 History Allergies Allergy/AdvReac Type Severity Reaction Status Date / Time ciprofloxacin [From CIPRO] AdvReac Unknown C. Diff Verified 08/11/20 11:09 Review of Systems Review of Systems Narrative: All 12 point systems reviewed with the patient and are negative except otherwise documented. Exam Vital Signs (past 8 hours): - 05/16/21 15:44 05/16/21 15:49 05/16/21 16:00 Temperature Pulse Rate 130 H 129 H 122 H Respiratory Rate 21 19 Blood Pressure 141/76 H 137/79 Pulse Oximetry 97 98 96 05/16/21 16:30 05/16/21 17:00 05/16/21 17:30 Temperature Pulse Rate 129 H 112 H 112 H Respiratory Rate 23 16 19 Blood Pressure 142/82 H 131/70 Pulse Oximetry 97 95 05/16/21 18:00 05/16/21 18:49 05/16/21 18:57 Temperature Pulse Rate 113 H 108 H 107 H Respiratory Rate 20 23 Blood Pressure 149/74 H Pulse Oximetry 96 98 95 05/16/21 19:00 05/16/21 19:30 05/16/21 21:33 Temperature 101.7 F H Pulse Rate 103 H 111 H 114 H Respiratory Rate 19 22 18 Blood Pressure 147/76 H 151/71 H 143/69 H Pulse Oximetry 99 98 96 Oxygen Delivery Method Room Air Narrative Exam Narrative: General: Patient is a well-developed, well-nourished female who is ill appearing, in no respiratory distress at this time. HEENT: Normocephalic, atraumatic, extraocular muscles intact, oral pharynx is clear and mucous membranes are moist. Neck is symmetric, pain with movement, rigidity, trachea is midline, positive bilateral cervical adenopathy, no thyroid enlargement, tender with palpation, no masses palpated. Negative for JVD Chest: Normal AP diameter and contour without kyphoscoliosis, no nasal flaring, retractions, or tachypneic labored breathing. Lungs: Auscultation of all lung moy are clear without adventitious sounds, wheezes, rhonchi, or rales. Cardio: S1 & S2 with mildly tachycardia, regular rate and rhythm without murmur, rubs, or gallops, no carotid bruit, no cardiac pulsations present. Abdomen: Soft nontender, negative for organomegaly, or masses. Bowel sounds are present in all 4 quadrants without guarding or rebound, no CVA tenderness. Musculoskeletal: Muscle strength and tone are equal within normal limits, no deformity, crepitus, effusions, cyanosis, clubbing or edema present. Full range of motion intact radial and pedal pulses are normal. pt reports all over joint pain. Skin: Warm dry and intact without rashes, ulcerations or petechiae. Neuro: Alert and orientated x3, strength is +5/5 in all extremities, sensation to touch intact, no gross deficits noted of cranial nerves. Psych: Patient has a well-kept appearance, appropriate affect, mental status attitude thought context and judgment are appropriate for age. Objective Labs Result Diagrams: 05/16/21 14:00 05/16/21 14:00 Labs: Laboratory Results - last 24 hr 05/16/21 05/16/21 05/16/21 14:00 14:00 14:00 WBC 12.6 H RBC 4.47 Hgb 14.1 Hct 41.4 MCV 92.6 MCH 31.4 MCHC 34.0 RDW 13.5 Plt Count 131 L Neut % (Auto) 91.4 H Lymph % (Auto) 2.7 L Towner % (Auto) 5.5 Eos % (Auto) 0.1 L Baso % (Auto) 0.3 Neut # (Auto) 69767 H Lymph # (Auto) 300 L Towner # (Auto) 700 Eos # (Auto) 0 Baso # (Auto) 0 PT 13.6 H INR 1.2 APTT 31 D-Dimer Sodium 135 L Potassium 3.9 Chloride 101 Carbon Dioxide 25 BUN 11 Creatinine 0.79 Estimated GFR > 60.0 BUN/Creatinine Ratio 13.9 Glucose 130 H Calcium 9.4 Magnesium Total Bilirubin 1.2 AST 33 ALT 30 Alkaline Phosphatase 80 Total Creatine Kinase 61 CK-MB (CK-2) TNP CK-MB (CK-2) Rel Index TNP Troponin I 0.038 H NT-Pro-B Natriuret Pep 1960 H Total Protein 7.4 Albumin 4.5 Globulin 2.9 Albumin/Globulin Ratio 1.6 Triglycerides Cholesterol LDL Cholesterol, Calc HDL Cholesterol Lipase 53 Procalcitonin TSH Urine RBC Urine WBC Ur Squamous Epith Cells Amorphous Sediment Urine Bacteria Ur Culture Indicated? Chlamy pneumoniae PCR Adenovirus (PCR) B. pertussis DNA (PCR) B.parapertussis DNA PCR Coronavirus OC43 (PCR) Coronavirus HKU1 (PCR) Coronavirus 229E (PCR) SARS-CoV-2 (PCR) Coronavirus NL63 (PCR) Human Metapneumovir PCR Influenza Type A (PCR) Influenza Type B (PCR) M. pneumoniae (PCR) Parainfluenza 1 (PCR) Parainfluenza 2 (PCR) Parainfluenza 3 (PCR) Parainfluenza 4 (PCR) RSV (PCR) Entero/Rhino (PCR) 05/16/21 05/16/21 05/16/21 14:00 14:26 15:55 WBC RBC Hgb Hct MCV MCH MCHC RDW Plt Count Neut % (Auto) Lymph % (Auto) Towner % (Auto) Eos % (Auto) Baso % (Auto) Neut # (Auto) Lymph # (Auto) Towner # (Auto) Eos # (Auto) Baso # (Auto) PT INR APTT D-Dimer 317 H Sodium Potassium Chloride Carbon Dioxide BUN Creatinine Estimated GFR BUN/Creatinine Ratio Glucose Calcium Magnesium Total Bilirubin AST ALT Alkaline Phosphatase Total Creatine Kinase CK-MB (CK-2) CK-MB (CK-2) Rel Index Troponin I 0.032 NT-Pro-B Natriuret Pep Total Protein Albumin Globulin Albumin/Globulin Ratio Triglycerides Cholesterol LDL Cholesterol, Calc HDL Cholesterol Lipase Procalcitonin TSH Urine RBC Urine WBC Ur Squamous Epith Cells Amorphous Sediment Urine Bacteria Ur Culture Indicated? Chlamy pneumoniae PCR Adenovirus (PCR) B. pertussis DNA (PCR) B.parapertussis DNA PCR Coronavirus OC43 (PCR) Coronavirus HKU1 (PCR) Coronavirus 229E (PCR) SARS-CoV-2 (PCR) Negative Coronavirus NL63 (PCR) Human Metapneumovir PCR Influenza Type A (PCR) Influenza Type B (PCR) M. pneumoniae (PCR) Parainfluenza 1 (PCR) Parainfluenza 2 (PCR) Parainfluenza 3 (PCR) Parainfluenza 4 (PCR) RSV (PCR) Entero/Rhino (PCR) 05/16/21 05/16/21 05/16/21 18:30 20:57 20:57 WBC RBC Hgb Hct MCV MCH MCHC RDW Plt Count Neut % (Auto) Lymph % (Auto) Towner % (Auto) Eos % (Auto) Baso % (Auto) Neut # (Auto) Lymph # (Auto) Towner # (Auto) Eos # (Auto) Baso # (Auto) PT INR APTT D-Dimer Sodium Potassium Chloride Carbon Dioxide BUN Creatinine Estimated GFR BUN/Creatinine Ratio Glucose Calcium Magnesium 1.6 Total Bilirubin AST ALT Alkaline Phosphatase Total Creatine Kinase CK-MB (CK-2) CK-MB (CK-2) Rel Index Troponin I 0.023 NT-Pro-B Natriuret Pep Total Protein Albumin Globulin Albumin/Globulin Ratio Triglycerides Cholesterol LDL Cholesterol, Calc HDL Cholesterol Lipase Procalcitonin TSH Urine RBC 1-5/hpf Urine WBC 1-5/hpf Ur Squamous Epith Cells 0-1 /hpf Amorphous Sediment 1+ Urine Bacteria Occasional (0-1) Ur Culture Indicated? Cult not indicated Chlamy pneumoniae PCR Adenovirus (PCR) B. pertussis DNA (PCR) B.parapertussis DNA PCR Coronavirus OC43 (PCR) Coronavirus HKU1 (PCR) Coronavirus 229E (PCR) SARS-CoV-2 (PCR) Coronavirus NL63 (PCR) Human Metapneumovir PCR Influenza Type A (PCR) Influenza Type B (PCR) M. pneumoniae (PCR) Parainfluenza 1 (PCR) Parainfluenza 2 (PCR) Parainfluenza 3 (PCR) Parainfluenza 4 (PCR) RSV (PCR) Entero/Rhino (PCR) 05/16/21 05/16/21 05/16/21 20:57 20:57 20:57 WBC RBC Hgb Hct MCV MCH MCHC RDW Plt Count Neut % (Auto) Lymph % (Auto) Towner % (Auto) Eos % (Auto) Baso % (Auto) Neut # (Auto) Lymph # (Auto) Towner # (Auto) Eos # (Auto) Baso # (Auto) PT INR APTT D-Dimer Sodium Potassium Chloride Carbon Dioxide BUN Creatinine Estimated GFR BUN/Creatinine Ratio Glucose Calcium Magnesium Total Bilirubin AST ALT Alkaline Phosphatase Total Creatine Kinase CK-MB (CK-2) CK-MB (CK-2) Rel Index Troponin I NT-Pro-B Natriuret Pep Total Protein Albumin Globulin Albumin/Globulin Ratio Triglycerides 35 Cholesterol 139 L LDL Cholesterol, Calc 72 HDL Cholesterol 60 Lipase Procalcitonin 4.91 H TSH 0.63 Urine RBC Urine WBC Ur Squamous Epith Cells Amorphous Sediment Urine Bacteria Ur Culture Indicated? Chlamy pneumoniae PCR Adenovirus (PCR) B. pertussis DNA (PCR) B.parapertussis DNA PCR Coronavirus OC43 (PCR) Coronavirus HKU1 (PCR) Coronavirus 229E (PCR) SARS-CoV-2 (PCR) Coronavirus NL63 (PCR) Human Metapneumovir PCR Influenza Type A (PCR) Influenza Type B (PCR) M. pneumoniae (PCR) Parainfluenza 1 (PCR) Parainfluenza 2 (PCR) Parainfluenza 3 (PCR) Parainfluenza 4 (PCR) RSV (PCR) Entero/Rhino (PCR) 05/16/21 21:10 WBC RBC Hgb Hct MCV MCH MCHC RDW Plt Count Neut % (Auto) Lymph % (Auto) Towner % (Auto) Eos % (Auto) Baso % (Auto) Neut # (Auto) Lymph # (Auto) Towner # (Auto) Eos # (Auto) Baso # (Auto) PT INR APTT D-Dimer Sodium Potassium Chloride Carbon Dioxide BUN Creatinine Estimated GFR BUN/Creatinine Ratio Glucose Calcium Magnesium Total Bilirubin AST ALT Alkaline Phosphatase Total Creatine Kinase CK-MB (CK-2) CK-MB (CK-2) Rel Index Troponin I NT-Pro-B Natriuret Pep Total Protein Albumin Globulin Albumin/Globulin Ratio Triglycerides Cholesterol LDL Cholesterol, Calc HDL Cholesterol Lipase Procalcitonin TSH Urine RBC Urine WBC Ur Squamous Epith Cells Amorphous Sediment Urine Bacteria Ur Culture Indicated? Chlamy pneumoniae PCR Not detected Adenovirus (PCR) Not detected B. pertussis DNA (PCR) Not detected B.parapertussis DNA PCR Not detected Coronavirus OC43 (PCR) Not detected Coronavirus HKU1 (PCR) Not detected Coronavirus 229E (PCR) Not detected SARS-CoV-2 (PCR) Not detected Coronavirus NL63 (PCR) Not detected Human Metapneumovir PCR Not detected Influenza Type A (PCR) Not detected Influenza Type B (PCR) Not detected M. pneumoniae (PCR) Not detected Parainfluenza 1 (PCR) Not detected Parainfluenza 2 (PCR) Not detected Parainfluenza 3 (PCR) Not detected Parainfluenza 4 (PCR) Not detected RSV (PCR) Not detected Entero/Rhino (PCR) Not detected Assessment & Plan Assessment & Plan narrative: Roxanne Vizcaino is a 61-year-old female with a medical history of asthma, kidney disease, hyperlipidemia, obesity, and liver disease who presented to the emergency department after experiencing severe joint pain throughout her body burning tingling in hands and feet headache for the past 24 hours then this afternoon she developed chest pain the feeling of an elephant sitting on her chest that radiated down to her left arm, and acute onset of all over joint pain, and neck pain with stiffness. Patient admitted for chest pain, myocardial injury with troponin greater than 99th percentile, elevated blood pressure, and meets SIRS criteria, leukocytosis of unknown etiology-suspected sepsis/meningitis. 1. Chest pain, acute, Myocardial injury, as as evidenced by elevated troponin greater than 99th percentile,acute, in the setting of elevated blood pressure, acute, hyperlidiemia, chronic, present on admission -Chest pain elephant sitting on chest, radiating into the left arm. -Heart rate: tachycardic 111-120s, B/P's 151/71, 140/80. EKG demonstrated sinus tachycardia with a rate of [address] or T-wave changes. -D-dimer was elevated at 317, CTA was negative for PE or acute pulmonary processes, chest x-ray was negative for acute cardiopulmonary processes, BNP was 1960, lipase WNL, initial troponin was 0.038 demonstrating myocardial injury greater than 99 %, 2nd troponin 0.032, 3rd 0.023. -Lovenox 40mg -Echo & stress ordered for tomorrow -monitor on telemed. -Continue to trend troponins, TSH, A1C 2. Leukocytosis, febrile, meets SIRS criteria, unknown etiology, acute, present on admission -temp 101.1, HR 111, RR 22, WBC 12.6, neut 11,500, source unknown, no hypotension on admit. Neck pain/stiffness, joint pain/stiffness. -DDX viral illness, endocarditis, meningitis, COVID. -monitor for sepsis/septic shock -LR @60cc/hr. -Blood cultures, resp panel, Procalc, MRSA, lactic, ESR, CRP 3. Obesity as evidenced by BMI 40.6, acute on chronic, present on admission -recommend dietary counseling with PCP Code status:DNR Surrogate decision maker: Lizeth Randall friend COVID PCR:Negative COVID vaccination: Vaxinated 2020 DVT/VTE prophylaxis:Love 40mg & ScDs Disposition: Patient admitted to observation expected length of stay less than 2 midnights I have utilized all available immediate resources to obtain, update, or review the patient's current medications. I confirmed that the patient's advanced care plan is present, Code status is documented and/or surrogate decision maker is listed in the patient's medical record. Time Spent With Patient Critical Care time: I spent a total of [] minutes of critical care time on this patient's care today; this time is exclusive of procedural time. Quality VTE Deep Vein Thrombosis/Pulmonary Embolism Present on Admission: No
[2021-05-16 23:36] LABS: Hemoglobin A1C% w Est Avg Glu 5.1 % (4.0-6.0)
[2021-05-17] VITALS (25 sets, daily range): BP systolic 70–127; BP diastolic 36–80; PULSE 82–108; RESP 15–34; TEMP 36.6–37.1; O2SAT 90–99
[2021-05-17] MEDS: LACTATED RINGERS 500 ML IV (00:45)
[2021-05-17] MEDS: LACTATED RINGERS 1,000 ML 1000 ML IV ×2 (01:00→02:10)
[2021-05-17 01:22] LABS: Lactate (Lactic Acid) 2.5 mmol/L (0.7-2.1)
[2021-05-17 01:34] LABS: Troponin I 0.015 ng/mL (0.01-0.034)
--- NOTE | 2021-05-17 01:57 | DI.RAD.S_ITS ---
PROCEDURE: XR CHEST 1V INDICATIONS: central line placement confirmation TECHNIQUE: One view of the chest was acquired. COMPARISON: [facility], , XR CHEST 1V, 05/16/2021, 14:14. FINDINGS: Surgical changes and devices: Central venous catheter projects over the mid SVC via right IJ approach. Lungs and pleura: Lungs are clear. No pleural effusions or pneumothorax. Mediastinum: Mediastinal contours appear normal. Heart size is normal. Bones and chest wall: No suspicious bony lesions. Overlying soft tissues appear unremarkable. IMPRESSION: Central venous catheter tip projects over the mid SVC. Dictated by: Emili Coto MD, PhD on 05/17/2021 at 7:13 Approved by: Emili Coto MD, PhD on 05/17/2021 at 7:14
--- NOTE | 2021-05-17 02:12 | PM.PROC.1 ---
Procedures Date/Time Date of procedure: 05/17/21 Time of procedure: 02:12 General Procedure description: Right IJ insertion Central Line Placement Time out performed: Yes Patient placed on monitor/pulse ox: Yes MD prep: mask, gown and gloves Central line prep: Povidone-Iodine 1% and sterile drapes applied Local anesthesia used: lidocaine 1% Amount of anesthesia used (ml): 4 Ultrasound used for placement: Yes Central line lumen inserted: triple Post procedure: sutured in place, good blood return, all ports aspirated, flushed, capped and sterile dressing applied Post procedure x-ray: tip of catheter in good position and no pneumothorax seen Patient tolerated procedure: well and no complications
--- NOTE | 2021-05-17 02:25 | P.TELICUCN_ITS ---
History of Present Illness Consult details Chief complaint: Left arm pain/neck pain today :: This patient was seen via real time interactive two-way audiovisual telecommunication. Narrative: 61-year-old female with medical history of morbid obesity and asthma, presented with H/O of generalized joint with burning tingling in hands and feet, history of headache for the past 24 hours followed by chest tightness and pain ?radiated down to her left.? On exam patient was febrile and having neck rigidity. Patient has been vaccinated against COVID-19. EKG, trop, CTA chest un remarkable per radiology, Patient describes her chest pain as part of sever body ache , on/ off, worse with movement and deep breath, no improvement when leaning forward, no pericardial effusion seen on CTA or bedside Echo by the ER . ? Assessment: Sever sepsis, source TBD (? Meningo encephalitis, Pericarditis) Chest pain ?Acute coronary syndrome Headache Lactic acidosis H/o of asthma ? ? Rec: IV fluid bolus 30 ml/kg, if MAP below 65 start levo After hemodynamically stable Head CT, followed by LP start empiric Van, ceftriaxone, ampicillin & Acyclovir, f/u gomez cx Q1 hr neuro checks 2 D echo, trend trop and EKG Q4h Trend lactate Q6H, CMP Q12h SCD for now, if head CT negative start chemical DVT ppx No indication for GI ppx Discussed with CLINICAL TEAM LEAD & RN ? [facility] Medical History Adrenal abnormality (~1989) Amenorrhea (~2015) Anemia (~2010) Asthma (~2008) Chicken pox (~1962) Chronic back pain (~2018) Chronic cough Colon polyps (~1999) Fibroids (~2016) Heavy menstrual period (~2010) Kidney disease (~1988) Liver disease (~2019) Low back pain (~2018) Measles (~1965) Menopause (~2016) Mononucleosis (~1978) Mumps (~1965) Painful menstrual periods Proteinuria (~1988) Surgical History Anesthesia History of colonoscopy History of laparoscopy (~1991) Status post biopsy of uterine cervix (~2018) Family History Father Diabetes mellitus History of heart disease Hypertension Colon cancer Hyperlipidemia Mother Ovarian cancer Smoker Grandfather Cancer Grandmother Diabetes mellitus Colon cancer Grandmother Alzheimer's disease Breast cancer Grandfather History of heart disease Family/Other Asthma Social History household members: none Smoking Status: Never smoker alcohol intake: current substance use type: does not use Current Medications Current Medications Medications: Home Medications cholecalciferol (vitamin D3) 10 mcg (400 unit) chewable tablet (Vitamin D3) #0 09/17/17 [History Confirmed 08/11/20] coQ10 (ubiquinol) 100 mg capsule #0 09/17/17 [History Confirmed 08/11/20] multivitamin (Multiple Vitamins) 1 tab PO QDAY #0 09/17/17 [History Confirmed 08/11/20] oregano oil 1,500 mg capsule 1,500 mg PO #0 09/17/17 [History Confirmed 08/11/20] albuterol sulfate 90 mcg/actuation aerosol inhaler 2 puff INHALATION Q4-6H PRN #18 g 08/11/20 [Rx Confirmed 08/11/20] d-mannose ea PO 08/11/20 [History Confirmed 08/11/20] honey 100 % topical gel (Manuka Honey) ea TOPICAL 08/11/20 [History Confirmed 08/11/20] milk thistle 500 mg capsule 500 mg PO DAILY 08/11/20 [History Confirmed 08/11/20] turmeric 400 mg capsule mg PO 08/11/20 [History Confirmed 08/11/20] Visit Medications (administered) Generic Name Dose Route Start Last Admin Trade Name Freq PRN Reason Stop Dose Admin Acetaminophen 650 mg 05/16/21 19:59 05/16/21 21:28 Acetaminophen 325 Mg Tablet PO 650 mg Q6HR PRN Administration Fever/Mild Pain (1-3) Exam Vital Signs (past 8 hours): - 05/16/21 18:49 05/16/21 18:57 05/16/21 19:00 Temperature Pulse Rate 108 H 107 H 103 H Respiratory Rate 23 19 Blood Pressure 149/74 H 147/76 H Pulse Oximetry 98 95 99 05/16/21 19:30 05/16/21 21:33 05/16/21 22:20 Temperature 101.7 F H 99.9 F H Pulse Rate 111 H 114 H Respiratory Rate 22 18 Blood Pressure 151/71 H 143/69 H Pulse Oximetry 98 96 05/16/21 22:55 05/17/21 01:14 Temperature 99.9 F H Pulse Rate Respiratory Rate Blood Pressure Pulse Oximetry 97 Oxygen Delivery Method Room Air Objective Labs Result Diagrams: 05/16/21 14:00 05/16/21 14:00 Labs: Laboratory Results - last 24 hr 05/16/21 05/16/21 05/16/21 14:00 14:00 14:00 WBC 12.6 H RBC 4.47 Hgb 14.1 Hct 41.4 MCV 92.6 MCH 31.4 MCHC 34.0 RDW 13.5 Plt Count 131 L Neut % (Auto) 91.4 H Lymph % (Auto) 2.7 L [place] % (Auto) 5.5 Eos % (Auto) 0.1 L Baso % (Auto) 0.3 Neut # (Auto) 06566 H Lymph # (Auto) 300 L [place] # (Auto) 700 Eos # (Auto) 0 Baso # (Auto) 0 PT 13.6 H INR 1.2 APTT 31 D-Dimer Sodium 135 L Potassium 3.9 Chloride 101 Carbon Dioxide 25 BUN 11 Creatinine 0.79 Estimated GFR > 60.0 BUN/Creatinine Ratio 13.9 Glucose 130 H Hemoglobin A1c Lactate Calcium 9.4 Magnesium Total Bilirubin 1.2 AST 33 ALT 30 Alkaline Phosphatase 80 Total Creatine Kinase 61 CK-MB (CK-2) TNP CK-MB (CK-2) Rel Index TNP Troponin I 0.038 H NT-Pro-B Natriuret Pep 1960 H Total Protein 7.4 Albumin 4.5 Globulin 2.9 Albumin/Globulin Ratio 1.6 Triglycerides Cholesterol LDL Cholesterol, Calc HDL Cholesterol Lipase 53 Procalcitonin TSH Urine RBC Urine WBC Ur Squamous Epith Cells Amorphous Sediment Urine Bacteria Ur Culture Indicated? Chlamy pneumoniae PCR Adenovirus (PCR) B. pertussis DNA (PCR) B.parapertussis DNA PCR Coronavirus OC43 (PCR) Coronavirus HKU1 (PCR) Coronavirus 229E (PCR) SARS-CoV-2 (PCR) Coronavirus NL63 (PCR) Human Metapneumovir PCR Influenza Type A (PCR) Influenza Type B (PCR) M. pneumoniae (PCR) Parainfluenza 1 (PCR) Parainfluenza 2 (PCR) Parainfluenza 3 (PCR) Parainfluenza 4 (PCR) RSV (PCR) Entero/Rhino (PCR) 05/16/21 05/16/21 05/16/21 14:00 14:26 15:55 WBC RBC Hgb Hct MCV MCH MCHC RDW Plt Count Neut % (Auto) Lymph % (Auto) [place] % (Auto) Eos % (Auto) Baso % (Auto) Neut # (Auto) Lymph # (Auto) [place] # (Auto) Eos # (Auto) Baso # (Auto) PT INR APTT D-Dimer 317 H Sodium Potassium Chloride Carbon Dioxide BUN Creatinine Estimated GFR BUN/Creatinine Ratio Glucose Hemoglobin A1c Lactate Calcium Magnesium Total Bilirubin AST ALT Alkaline Phosphatase Total Creatine Kinase CK-MB (CK-2) CK-MB (CK-2) Rel Index Troponin I 0.032 NT-Pro-B Natriuret Pep Total Protein Albumin Globulin Albumin/Globulin Ratio Triglycerides Cholesterol LDL Cholesterol, Calc HDL Cholesterol Lipase Procalcitonin TSH Urine RBC Urine WBC Ur Squamous Epith Cells Amorphous Sediment Urine Bacteria Ur Culture Indicated? Chlamy pneumoniae PCR Adenovirus (PCR) B. pertussis DNA (PCR) B.parapertussis DNA PCR Coronavirus OC43 (PCR) Coronavirus HKU1 (PCR) Coronavirus 229E (PCR) SARS-CoV-2 (PCR) Negative Coronavirus NL63 (PCR) Human Metapneumovir PCR Influenza Type A (PCR) Influenza Type B (PCR) M. pneumoniae (PCR) Parainfluenza 1 (PCR) Parainfluenza 2 (PCR) Parainfluenza 3 (PCR) Parainfluenza 4 (PCR) RSV (PCR) Entero/Rhino (PCR) 05/16/21 05/16/21 05/16/21 18:30 20:57 20:57 WBC RBC Hgb Hct MCV MCH MCHC RDW Plt Count Neut % (Auto) Lymph % (Auto) [place] % (Auto) Eos % (Auto) Baso % (Auto) Neut # (Auto) Lymph # (Auto) [place] # (Auto) Eos # (Auto) Baso # (Auto) PT INR APTT D-Dimer Sodium Potassium Chloride Carbon Dioxide BUN Creatinine Estimated GFR BUN/Creatinine Ratio Glucose Hemoglobin A1c Lactate Calcium Magnesium 1.6 Total Bilirubin AST ALT Alkaline Phosphatase Total Creatine Kinase CK-MB (CK-2) CK-MB (CK-2) Rel Index Troponin I 0.023 NT-Pro-B Natriuret Pep Total Protein Albumin Globulin Albumin/Globulin Ratio Triglycerides Cholesterol LDL Cholesterol, Calc HDL Cholesterol Lipase Procalcitonin TSH Urine RBC 1-5/hpf Urine WBC 1-5/hpf Ur Squamous Epith Cells 0-1 /hpf Amorphous Sediment 1+ Urine Bacteria Occasional (0-1) Ur Culture Indicated? Cult not indicated Chlamy pneumoniae PCR Adenovirus (PCR) B. pertussis DNA (PCR) B.parapertussis DNA PCR Coronavirus OC43 (PCR) Coronavirus HKU1 (PCR) Coronavirus 229E (PCR) SARS-CoV-2 (PCR) Coronavirus NL63 (PCR) Human Metapneumovir PCR Influenza Type A (PCR) Influenza Type B (PCR) M. pneumoniae (PCR) Parainfluenza 1 (PCR) Parainfluenza 2 (PCR) Parainfluenza 3 (PCR) Parainfluenza 4 (PCR) RSV (PCR) Entero/Rhino (PCR) 05/16/21 05/16/21 05/16/21 20:57 20:57 20:57 WBC RBC Hgb Hct MCV MCH MCHC RDW Plt Count Neut % (Auto) Lymph % (Auto) [place] % (Auto) Eos % (Auto) Baso % (Auto) Neut # (Auto) Lymph # (Auto) [place] # (Auto) Eos # (Auto) Baso # (Auto) PT INR APTT D-Dimer Sodium Potassium Chloride Carbon Dioxide BUN Creatinine Estimated GFR BUN/Creatinine Ratio Glucose Hemoglobin A1c 5.1 Lactate Calcium Magnesium Total Bilirubin AST ALT Alkaline Phosphatase Total Creatine Kinase CK-MB (CK-2) CK-MB (CK-2) Rel Index Troponin I NT-Pro-B Natriuret Pep Total Protein Albumin Globulin Albumin/Globulin Ratio Triglycerides 35 Cholesterol 139 L LDL Cholesterol, Calc 72 HDL Cholesterol 60 Lipase Procalcitonin 4.91 H TSH Urine RBC Urine WBC Ur Squamous Epith Cells Amorphous Sediment Urine Bacteria Ur Culture Indicated? Chlamy pneumoniae PCR Adenovirus (PCR) B. pertussis DNA (PCR) B.parapertussis DNA PCR Coronavirus OC43 (PCR) Coronavirus HKU1 (PCR) Coronavirus 229E (PCR) SARS-CoV-2 (PCR) Coronavirus NL63 (PCR) Human Metapneumovir PCR Influenza Type A (PCR) Influenza Type B (PCR) M. pneumoniae (PCR) Parainfluenza 1 (PCR) Parainfluenza 2 (PCR) Parainfluenza 3 (PCR) Parainfluenza 4 (PCR) RSV (PCR) Entero/Rhino (PCR) 05/16/21 05/16/21 05/17/21 20:57 21:10 01:05 WBC RBC Hgb Hct MCV MCH MCHC RDW Plt Count Neut % (Auto) Lymph % (Auto) [place] % (Auto) Eos % (Auto) Baso % (Auto) Neut # (Auto) Lymph # (Auto) [place] # (Auto) Eos # (Auto) Baso # (Auto) PT INR APTT D-Dimer Sodium Potassium Chloride Carbon Dioxide BUN Creatinine Estimated GFR BUN/Creatinine Ratio Glucose Hemoglobin A1c Lactate Calcium Magnesium Total Bilirubin AST ALT Alkaline Phosphatase Total Creatine Kinase CK-MB (CK-2) CK-MB (CK-2) Rel Index Troponin I 0.015 NT-Pro-B Natriuret Pep Total Protein Albumin Globulin Albumin/Globulin Ratio Triglycerides Cholesterol LDL Cholesterol, Calc HDL Cholesterol Lipase Procalcitonin TSH 0.63 Urine RBC Urine WBC Ur Squamous Epith Cells Amorphous Sediment Urine Bacteria Ur Culture Indicated? Chlamy pneumoniae PCR Not detected Adenovirus (PCR) Not detected B. pertussis DNA (PCR) Not detected B.parapertussis DNA PCR Not detected Coronavirus OC43 (PCR) Not detected Coronavirus HKU1 (PCR) Not detected Coronavirus 229E (PCR) Not detected SARS-CoV-2 (PCR) Not detected Coronavirus NL63 (PCR) Not detected Human Metapneumovir PCR Not detected Influenza Type A (PCR) Not detected Influenza Type B (PCR) Not detected M. pneumoniae (PCR) Not detected Parainfluenza 1 (PCR) Not detected Parainfluenza 2 (PCR) Not detected Parainfluenza 3 (PCR) Not detected Parainfluenza 4 (PCR) Not detected RSV (PCR) Not detected Entero/Rhino (PCR) Not detected 05/17/21 01:05 WBC RBC Hgb Hct MCV MCH MCHC RDW Plt Count Neut % (Auto) Lymph % (Auto) [place] % (Auto) Eos % (Auto) Baso % (Auto) Neut # (Auto) Lymph # (Auto) [place] # (Auto) Eos # (Auto) Baso # (Auto) PT INR APTT D-Dimer Sodium Potassium Chloride Carbon Dioxide BUN Creatinine Estimated GFR BUN/Creatinine Ratio Glucose Hemoglobin A1c Lactate 2.5 H Calcium Magnesium Total Bilirubin AST ALT Alkaline Phosphatase Total Creatine Kinase CK-MB (CK-2) CK-MB (CK-2) Rel Index Troponin I NT-Pro-B Natriuret Pep Total Protein Albumin Globulin Albumin/Globulin Ratio Triglycerides Cholesterol LDL Cholesterol, Calc HDL Cholesterol Lipase Procalcitonin TSH Urine RBC Urine WBC Ur Squamous Epith Cells Amorphous Sediment Urine Bacteria Ur Culture Indicated? Chlamy pneumoniae PCR Adenovirus (PCR) B. pertussis DNA (PCR) B.parapertussis DNA PCR Coronavirus OC43 (PCR) Coronavirus HKU1 (PCR) Coronavirus 229E (PCR) SARS-CoV-2 (PCR) Coronavirus NL63 (PCR) Human Metapneumovir PCR Influenza Type A (PCR) Influenza Type B (PCR) M. pneumoniae (PCR) Parainfluenza 1 (PCR) Parainfluenza 2 (PCR) Parainfluenza 3 (PCR) Parainfluenza 4 (PCR) RSV (PCR) Entero/Rhino (PCR) Assessment & Plan Time Spent With Patient Critical Care time: I spent a total of [] minutes of critical care time on this patient's care today; this time is exclusive of procedural time.
[2021-05-17] MEDS: AMPICILLIN 2,000 MG in SODIUM CHLORIDE 0.9% 100 ML 200 ML IV ×6 (02:50→21:22)
[2021-05-17] MEDS: cefTRIAXone 2,000 MG in SODIUM CHLORIDE 0.9% 100 ML 200 ML IV ×2 (02:51→13:07)
[2021-05-17] MEDS: VANCOMYCIN 1,000 MG/200 ML PIGGYBACK 200 MG IV ×3 (02:52→19:59)
[2021-05-17 03:10] LABS: Reflexed Lactate in 2 Hours Y
--- NOTE | 2021-05-17 03:12 | DI.CT.S_ITS ---
PROCEDURE: CT HEAD/BRAIN WO CON INDICATIONS: possible meningitis TECHNIQUE: Noncontrast 4.5 mm thick angled axial sections acquired from the foramen magnum to the vertex, with coronal and sagittal reformats. For radiation dose reduction, the following was used: automated exposure control, adjustment of mA and/or kV according to patient size. COMPARISON: None. FINDINGS: Image quality: Excellent. CSF spaces: Basal cisterns are patent. No extra-axial fluid collections. Ventricles are normal in size and shape. Brain: No midline shift. No intracranial masses or hemorrhage. [place]es-white matter interface is normal. Skull and face: Calvarium and visualized facial bones are intact, without suspicious lesions. Sinuses: Visualized sinuses and mastoids are clear. IMPRESSION: Unremarkable head CT. No evidence of acute stroke, hemorrhage, or mass. Dictated by: Manuel Moreira M.D. on 05/17/2021 at 8:10 Approved by: Manuel Moreira M.D. on 05/17/2021 at 8:10
[2021-05-17] MEDS: ACYCLOVIR IV ×3 (03:22→18:42)
[2021-05-17] MEDS: WATER IV ×3 (03:22→18:42)
[2021-05-17] MEDS: DEXTROSE 5% IV ×3 (03:22→18:42)
[2021-05-17] MEDS: HYDROMORPHONE 2 MG TABLET PO ×3 (03:26→19:58)
[2021-05-17] MEDS: KETOROLAC 30 MG/ML VIAL IV (03:27)
[2021-05-17] MEDS: VANCOMYCIN 750 MG/150 ML PIGGYBACK 150 MG IV (04:17)
[2021-05-17 04:50] LABS: Add Manual Diff / Slide Review NO; Basophils Absolute Auto 0 /uL (0-100); Basophils Percent Auto 0.3 % (0-2); Eosinophils Absolute Auto 0 /uL (0-450); Hematocrit 31.9 % (36-46); Lymphocytes Absolute Auto 500 /uL (1100-4500); Lymphocytes Percent Auto 5.5 % (25-40); Mean Corpuscular HGB Conc 34.4 % (30-36); Mean Corpuscular Hemoglobin 31.6 PG (26-34); Mean Corpuscular Volume 91.9 fL (80-100); Monocytes Absolute Auto 600 /uL (0-900); Monocytes Percent Auto 6.5 % (3-14); Neutrophils Absolute Auto 8400 /uL (1500-7000); Neutrophils Percent Auto 87.7 % (50-75); Platelet Count 96 X10^3/uL (150-400); Red Blood Cell Count 3.47 X10^6/uL (4.0-5.2); Red Cell Distribution Width 13.2 % (11.6-14.8); White Blood Cell Count 9.6 X10^3/uL (4.5-11.0)
--- NOTE | 2021-05-17 04:54 | PC.NURSE ---
Pt arrived to floor in no cardiac or respiratory distress. Complaining of generalized body ache, including neck and all four limbs. Denied chest pain, headache, dizziness, nausea, shortness of breath, numbness or tingling. Alert and oriented, no CMS deficits. Pt tachy & hypertensive- given 10 mg lisinopril. LR started at 60 mL/hr. At 2130 Toraldol 30 mg IV and tylenol 650 given for fever 101.7?F and generalized body pain of 10/10. Cooling measures taken, including removal of blankets and placement of cool washcloth. Approx 1 hour later, pt's temperature reduced to 99.9?F. Aches in body reduced to 6/10. Vitals were checked at 0045. Pt extremely diaphoretic. Temperature reduced to 98.1?F oral. BP was low at 95/51. Pt denied any chest pain or shortness of breath. BP recheck on different machine showed 85/48. Pt laid flat in bed, slight trendelenberg. Hospitalist contacted, rec'd orders for a 500 cc bolus LR. Manual BP cuff retrieved. On returning with cuff, pt reported feeling chest tightness on inspiration. Provider informed, ordered stat labs and stat EKG. EKG NSR. Pt remains diaphoretic. BP recheck at 0100 70/36. Confirmed with manual cuff/ausculation. Placed in full trendelenberg. Placed on 2L O2. Provider informed. Added 1000cc LR bolus. Pt AOx4, reporting chest tightness and muscle aches. Afebrile. BP recheck at 0110 showed 74/42. Provider informed. Rec'd orders to begin transfer to ICU. Last BP prior to transfer at 0116 was 80/50 using manual cuff/auscultation. Report given to CHARTER BOAT CAPTAIN.
[2021-05-17 04:58] LABS: Lactate 2HR (Lactic Acid Rflx) 1.5 mmol/L (0.7-2.1)
[2021-05-17 04:59] LABS: BUN Creatinine Ratio 19.8 (6-22); Blood Urea Nitrogen 17 mg/dL (7-17); Carbon Dioxide 24 mmol/L (22-32); Chloride 101 mmol/L (98-107); Estimated Glomerular Filt Rate > 60.0 mL/min (>60); Glucose 150 mg/dL (80-110); HEMOLYSIS 16 (0-50); Potassium 3.5 mmol/L (3.4-5.1); Sodium 132 mmol/L (137-145)
[2021-05-17 05:08] LABS: NT-proBNP (BNP-Adult 18+) 2590 pg/mL (<125)
[2021-05-17 05:11] LABS: Erythrocyte Sedimentation Rate 38 MM/HR (0-20); Troponin I 0.016 ng/mL (0.01-0.034)
[2021-05-17 05:35] LABS: C-Reactive Protein Quant 19.9 mg/dL (<1.0)
[2021-05-17] MEDS: NOREPINEPHRINE 4 MG in DEXTROSE 5% IN WATER 250 ML 15.24 ML IV (06:43)
--- NOTE | 2021-05-17 07:35 | PC.NURSE ---
Night Night-Patient transferred to ICU room 228 at 0130, hypotensive, 75/52(60), then 107/56(76), LR bolus infusing, CL placed in RIJ by ED MD, tolerated well, Vancomycin, Acyclovir, Ampicillin, and Rocephin given as ordered, IV Toradol and PO Dilaudid given for generalized aches SR/ST, afebrile, SpO2 >92% on 3L, see all vital trends in chart. No UOP, denies urger to void, MD aware. Levophed started at 0700, rate 4mcg/min, BP trending downward, 80s/50 MAP 61-65.
[2021-05-17 08:47] LABS: Platelet Count 98 X10^3/uL (150-400)
[2021-05-17 08:53] LABS: INR 1.7 (0.9-1.3); Prothrombin Time 18.6 SECONDS (10.1-12.7)
[2021-05-17 08:56] LABS: PTT Partial Thromboplastin Tim 31 SECONDS (26.4-36.2)
--- NOTE | 2021-05-17 09:43 | P.TELICUPN_ITS ---
Subjective Subjective :: This patient was seen via real time interactive two-way audiovisual telecommunication. No acute issues overnight. TTE completed pending read. Remains SR. On levophed 2 mcg. Started on meningitis rx pending LP and MRI brain. Current Medications Current Medications Medications: Home Medications cholecalciferol (vitamin D3) 10 mcg (400 unit) chewable tablet (Vitamin D3) #0 09/17/17 [History Confirmed 08/11/20] coQ10 (ubiquinol) 100 mg capsule #0 09/17/17 [History Confirmed 08/11/20] multivitamin (Multiple Vitamins) 1 tab PO QDAY #0 09/17/17 [History Confirmed 08/11/20] oregano oil 1,500 mg capsule 1,500 mg PO #0 09/17/17 [History Confirmed 08/11/20] albuterol sulfate 90 mcg/actuation aerosol inhaler 2 puff INHALATION Q4-6H PRN #18 g 08/11/20 [Rx Confirmed 08/11/20] d-mannose ea PO 08/11/20 [History Confirmed 08/11/20] honey 100 % topical gel (Manuka Honey) ea TOPICAL 08/11/20 [History Confirmed 08/11/20] milk thistle 500 mg capsule 500 mg PO DAILY 08/11/20 [History Confirmed 08/11/20] turmeric 400 mg capsule mg PO 08/11/20 [History Confirmed 08/11/20] Visit Medications (administered) Generic Name Dose Route Start Last Admin Trade Name Freq PRN Reason Stop Dose Admin Acetaminophen 650 mg 05/16/21 19:59 05/16/21 21:28 Acetaminophen 325 Mg Tablet PO 650 mg Q6HR PRN Administration Fever/Mild Pain (1-3) Hydromorphone HCl 2 mg 05/17/21 03:09 05/17/21 03:26 Hydromorphone 2 Mg Tablet PO 2 mg Q4HR PRN Administration Pain, Severe (7-10) Norepinephrine Bitartrate 4 mg 254 mls @ 30.48 mls/hr 05/17/21 01:15 05/17/21 06:43 / Dextrose IV 4 mcg/min TITRATE HOLGER 15.24 mls/hr Administration Protocol 8 MCG/MIN Ceftriaxone Sodium 2,000 mg/ 100 mls @ 200 mls/hr 05/17/21 01:15 05/17/21 04:16 Sodium Chloride IV Infused Q12H HOLGER Infusion Ampicillin Sodium 2,000 mg/ 100 mls @ 200 mls/hr 05/17/21 01:30 05/17/21 06:58 Sodium Chloride IV Infused Q4H HOLGER Infusion Acyclovir 1,140 mg/ Dextrose 250 mls @ 250 mls/hr 05/17/21 01:30 05/17/21 05:28 IV Infused Q8H HOLGER Infusion Ketorolac Tromethamine 30 mg 05/17/21 03:09 05/17/21 03:27 Ketorolac 30 Mg/Ml Vial IV 05/22/21 03:09 30 mg Q6H PRN Administration Pain, Moderate (4-6) Objective Labs Result Diagrams: 05/17/21 08:10 05/17/21 04:30 Labs: Laboratory Results - last 24 hr 05/16/21 05/16/21 05/16/21 14:00 14:00 14:00 WBC 12.6 H RBC 4.47 Hgb 14.1 Hct 41.4 MCV 92.6 MCH 31.4 MCHC 34.0 RDW 13.5 Plt Count 131 L Neut % (Auto) 91.4 H Lymph % (Auto) 2.7 L [place] % (Auto) 5.5 Eos % (Auto) 0.1 L Baso % (Auto) 0.3 Neut # (Auto) 61454 H Lymph # (Auto) 300 L [place] # (Auto) 700 Eos # (Auto) 0 Baso # (Auto) 0 ESR PT 13.6 H INR 1.2 APTT 31 D-Dimer Sodium 135 L Potassium 3.9 Chloride 101 Carbon Dioxide 25 BUN 11 Creatinine 0.79 Estimated GFR > 60.0 BUN/Creatinine Ratio 13.9 Glucose 130 H Hemoglobin A1c Lactate Calcium 9.4 Magnesium Total Bilirubin 1.2 AST 33 ALT 30 Alkaline Phosphatase 80 Total Creatine Kinase 61 CK-MB (CK-2) TNP CK-MB (CK-2) Rel Index TNP Troponin I 0.038 H C-Reactive Protein NT-Pro-B Natriuret Pep 1960 H Total Protein 7.4 Albumin 4.5 Globulin 2.9 Albumin/Globulin Ratio 1.6 Triglycerides Cholesterol LDL Cholesterol, Calc HDL Cholesterol Lipase 53 Procalcitonin TSH Urine RBC Urine WBC Ur Squamous Epith Cells Amorphous Sediment Urine Bacteria Ur Culture Indicated? Nasal Screen MRSA (PCR) Chlamy pneumoniae PCR Adenovirus (PCR) B. pertussis DNA (PCR) B.parapertussis DNA PCR Coronavirus OC43 (PCR) Coronavirus HKU1 (PCR) Coronavirus 229E (PCR) SARS-CoV-2 (PCR) Coronavirus NL63 (PCR) Human Metapneumovir PCR Influenza Type A (PCR) Influenza Type B (PCR) M. pneumoniae (PCR) Parainfluenza 1 (PCR) Parainfluenza 2 (PCR) Parainfluenza 3 (PCR) Parainfluenza 4 (PCR) RSV (PCR) Entero/Rhino (PCR) 05/16/21 05/16/21 05/16/21 14:00 14:26 15:55 WBC RBC Hgb Hct MCV MCH MCHC RDW Plt Count Neut % (Auto) Lymph % (Auto) [place] % (Auto) Eos % (Auto) Baso % (Auto) Neut # (Auto) Lymph # (Auto) [place] # (Auto) Eos # (Auto) Baso # (Auto) ESR PT INR APTT D-Dimer 317 H Sodium Potassium Chloride Carbon Dioxide BUN Creatinine Estimated GFR BUN/Creatinine Ratio Glucose Hemoglobin A1c Lactate Calcium Magnesium Total Bilirubin AST ALT Alkaline Phosphatase Total Creatine Kinase CK-MB (CK-2) CK-MB (CK-2) Rel Index Troponin I 0.032 C-Reactive Protein NT-Pro-B Natriuret Pep Total Protein Albumin Globulin Albumin/Globulin Ratio Triglycerides Cholesterol LDL Cholesterol, Calc HDL Cholesterol Lipase Procalcitonin TSH Urine RBC Urine WBC Ur Squamous Epith Cells Amorphous Sediment Urine Bacteria Ur Culture Indicated? Nasal Screen MRSA (PCR) Chlamy pneumoniae PCR Adenovirus (PCR) B. pertussis DNA (PCR) B.parapertussis DNA PCR Coronavirus OC43 (PCR) Coronavirus HKU1 (PCR) Coronavirus 229E (PCR) SARS-CoV-2 (PCR) Negative Coronavirus NL63 (PCR) Human Metapneumovir PCR Influenza Type A (PCR) Influenza Type B (PCR) M. pneumoniae (PCR) Parainfluenza 1 (PCR) Parainfluenza 2 (PCR) Parainfluenza 3 (PCR) Parainfluenza 4 (PCR) RSV (PCR) Entero/Rhino (PCR) 05/16/21 05/16/21 05/16/21 18:30 20:57 20:57 WBC RBC Hgb Hct MCV MCH MCHC RDW Plt Count Neut % (Auto) Lymph % (Auto) [place] % (Auto) Eos % (Auto) Baso % (Auto) Neut # (Auto) Lymph # (Auto) [place] # (Auto) Eos # (Auto) Baso # (Auto) ESR PT INR APTT D-Dimer Sodium Potassium Chloride Carbon Dioxide BUN Creatinine Estimated GFR BUN/Creatinine Ratio Glucose Hemoglobin A1c Lactate Calcium Magnesium 1.6 Total Bilirubin AST ALT Alkaline Phosphatase Total Creatine Kinase CK-MB (CK-2) CK-MB (CK-2) Rel Index Troponin I 0.023 C-Reactive Protein NT-Pro-B Natriuret Pep Total Protein Albumin Globulin Albumin/Globulin Ratio Triglycerides Cholesterol LDL Cholesterol, Calc HDL Cholesterol Lipase Procalcitonin TSH Urine RBC 1-5/hpf Urine WBC 1-5/hpf Ur Squamous Epith Cells 0-1 /hpf Amorphous Sediment 1+ Urine Bacteria Occasional (0-1) Ur Culture Indicated? Cult not indicated Nasal Screen MRSA (PCR) Chlamy pneumoniae PCR Adenovirus (PCR) B. pertussis DNA (PCR) B.parapertussis DNA PCR Coronavirus OC43 (PCR) Coronavirus HKU1 (PCR) Coronavirus 229E (PCR) SARS-CoV-2 (PCR) Coronavirus NL63 (PCR) Human Metapneumovir PCR Influenza Type A (PCR) Influenza Type B (PCR) M. pneumoniae (PCR) Parainfluenza 1 (PCR) Parainfluenza 2 (PCR) Parainfluenza 3 (PCR) Parainfluenza 4 (PCR) RSV (PCR) Entero/Rhino (PCR) 05/16/21 05/16/21 05/16/21 20:57 20:57 20:57 WBC RBC Hgb Hct MCV MCH MCHC RDW Plt Count Neut % (Auto) Lymph % (Auto) [place] % (Auto) Eos % (Auto) Baso % (Auto) Neut # (Auto) Lymph # (Auto) [place] # (Auto) Eos # (Auto) Baso # (Auto) ESR PT INR APTT D-Dimer Sodium Potassium Chloride Carbon Dioxide BUN Creatinine Estimated GFR BUN/Creatinine Ratio Glucose Hemoglobin A1c 5.1 Lactate Calcium Magnesium Total Bilirubin AST ALT Alkaline Phosphatase Total Creatine Kinase CK-MB (CK-2) CK-MB (CK-2) Rel Index Troponin I C-Reactive Protein NT-Pro-B Natriuret Pep Total Protein Albumin Globulin Albumin/Globulin Ratio Triglycerides 35 Cholesterol 139 L LDL Cholesterol, Calc 72 HDL Cholesterol 60 Lipase Procalcitonin 4.91 H TSH Urine RBC Urine WBC Ur Squamous Epith Cells Amorphous Sediment Urine Bacteria Ur Culture Indicated? Nasal Screen MRSA (PCR) Chlamy pneumoniae PCR Adenovirus (PCR) B. pertussis DNA (PCR) B.parapertussis DNA PCR Coronavirus OC43 (PCR) Coronavirus HKU1 (PCR) Coronavirus 229E (PCR) SARS-CoV-2 (PCR) Coronavirus NL63 (PCR) Human Metapneumovir PCR Influenza Type A (PCR) Influenza Type B (PCR) M. pneumoniae (PCR) Parainfluenza 1 (PCR) Parainfluenza 2 (PCR) Parainfluenza 3 (PCR) Parainfluenza 4 (PCR) RSV (PCR) Entero/Rhino (PCR) 05/16/21 05/16/21 05/17/21 20:57 21:10 01:05 WBC RBC Hgb Hct MCV MCH MCHC RDW Plt Count Neut % (Auto) Lymph % (Auto) [place] % (Auto) Eos % (Auto) Baso % (Auto) Neut # (Auto) Lymph # (Auto) [place] # (Auto) Eos # (Auto) Baso # (Auto) ESR PT INR APTT D-Dimer Sodium Potassium Chloride Carbon Dioxide BUN Creatinine Estimated GFR BUN/Creatinine Ratio Glucose Hemoglobin A1c Lactate Calcium Magnesium Total Bilirubin AST ALT Alkaline Phosphatase Total Creatine Kinase CK-MB (CK-2) CK-MB (CK-2) Rel Index Troponin I 0.015 C-Reactive Protein NT-Pro-B Natriuret Pep Total Protein Albumin Globulin Albumin/Globulin Ratio Triglycerides Cholesterol LDL Cholesterol, Calc HDL Cholesterol Lipase Procalcitonin TSH 0.63 Urine RBC Urine WBC Ur Squamous Epith Cells Amorphous Sediment Urine Bacteria Ur Culture Indicated? Nasal Screen MRSA (PCR) Chlamy pneumoniae PCR Not detected Adenovirus (PCR) Not detected B. pertussis DNA (PCR) Not detected B.parapertussis DNA PCR Not detected Coronavirus OC43 (PCR) Not detected Coronavirus HKU1 (PCR) Not detected Coronavirus 229E (PCR) Not detected SARS-CoV-2 (PCR) Not detected Coronavirus NL63 (PCR) Not detected Human Metapneumovir PCR Not detected Influenza Type A (PCR) Not detected Influenza Type B (PCR) Not detected M. pneumoniae (PCR) Not detected Parainfluenza 1 (PCR) Not detected Parainfluenza 2 (PCR) Not detected Parainfluenza 3 (PCR) Not detected Parainfluenza 4 (PCR) Not detected RSV (PCR) Not detected Entero/Rhino (PCR) Not detected 05/17/21 05/17/21 05/17/21 01:05 03:45 04:30 WBC RBC Hgb Hct MCV MCH MCHC RDW Plt Count Neut % (Auto) Lymph % (Auto) [place] % (Auto) Eos % (Auto) Baso % (Auto) Neut # (Auto) Lymph # (Auto) [place] # (Auto) Eos # (Auto) Baso # (Auto) ESR PT INR APTT D-Dimer Sodium Potassium Chloride Carbon Dioxide BUN Creatinine Estimated GFR BUN/Creatinine Ratio Glucose Hemoglobin A1c Lactate 2.5 H Calcium Magnesium Total Bilirubin AST ALT Alkaline Phosphatase Total Creatine Kinase CK-MB (CK-2) CK-MB (CK-2) Rel Index Troponin I 0.016 C-Reactive Protein NT-Pro-B Natriuret Pep Total Protein Albumin Globulin Albumin/Globulin Ratio Triglycerides Cholesterol LDL Cholesterol, Calc HDL Cholesterol Lipase Procalcitonin TSH Urine RBC Urine WBC Ur Squamous Epith Cells Amorphous Sediment Urine Bacteria Ur Culture Indicated? Nasal Screen MRSA (PCR) Negative for mrsa Chlamy pneumoniae PCR Adenovirus (PCR) B. pertussis DNA (PCR) B.parapertussis DNA PCR Coronavirus OC43 (PCR) Coronavirus HKU1 (PCR) Coronavirus 229E (PCR) SARS-CoV-2 (PCR) Coronavirus NL63 (PCR) Human Metapneumovir PCR Influenza Type A (PCR) Influenza Type B (PCR) M. pneumoniae (PCR) Parainfluenza 1 (PCR) Parainfluenza 2 (PCR) Parainfluenza 3 (PCR) Parainfluenza 4 (PCR) RSV (PCR) Entero/Rhino (PCR) 05/17/21 05/17/21 05/17/21 04:30 04:30 04:30 WBC 9.6 RBC 3.47 L Hgb 11.0 L Hct 31.9 L MCV 91.9 MCH 31.6 MCHC 34.4 RDW 13.2 Plt Count 96 L Neut % (Auto) 87.7 H Lymph % (Auto) 5.5 L [place] % (Auto) 6.5 Eos % (Auto) 0.0 L Baso % (Auto) 0.3 Neut # (Auto) 8400 H Lymph # (Auto) 500 L [place] # (Auto) 600 Eos # (Auto) 0 Baso # (Auto) 0 ESR PT INR APTT D-Dimer Sodium 132 L Potassium 3.5 Chloride 101 Carbon Dioxide 24 BUN 17 Creatinine 0.86 Estimated GFR > 60.0 BUN/Creatinine Ratio 19.8 Glucose 150 H Hemoglobin A1c Lactate 1.5 Calcium 8.0 L Magnesium Total Bilirubin AST ALT Alkaline Phosphatase Total Creatine Kinase CK-MB (CK-2) CK-MB (CK-2) Rel Index Troponin I C-Reactive Protein NT-Pro-B Natriuret Pep 2590 H Total Protein Albumin Globulin Albumin/Globulin Ratio Triglycerides Cholesterol LDL Cholesterol, Calc HDL Cholesterol Lipase Procalcitonin TSH Urine RBC Urine WBC Ur Squamous Epith Cells Amorphous Sediment Urine Bacteria Ur Culture Indicated? Nasal Screen MRSA (PCR) Chlamy pneumoniae PCR Adenovirus (PCR) B. pertussis DNA (PCR) B.parapertussis DNA PCR Coronavirus OC43 (PCR) Coronavirus HKU1 (PCR) Coronavirus 229E (PCR) SARS-CoV-2 (PCR) Coronavirus NL63 (PCR) Human Metapneumovir PCR Influenza Type A (PCR) Influenza Type B (PCR) M. pneumoniae (PCR) Parainfluenza 1 (PCR) Parainfluenza 2 (PCR) Parainfluenza 3 (PCR) Parainfluenza 4 (PCR) RSV (PCR) Entero/Rhino (PCR) 05/17/21 05/17/21 05/17/21 04:30 04:30 08:10 WBC RBC Hgb Hct MCV MCH MCHC RDW Plt Count 98 L Neut % (Auto) Lymph % (Auto) [place] % (Auto) Eos % (Auto) Baso % (Auto) Neut # (Auto) Lymph # (Auto) [place] # (Auto) Eos # (Auto) Baso # (Auto) ESR 38 H PT INR APTT D-Dimer Sodium Potassium Chloride Carbon Dioxide BUN Creatinine Estimated GFR BUN/Creatinine Ratio Glucose Hemoglobin A1c Lactate Calcium Magnesium Total Bilirubin AST ALT Alkaline Phosphatase Total Creatine Kinase CK-MB (CK-2) CK-MB (CK-2) Rel Index Troponin I C-Reactive Protein 19.9 H NT-Pro-B Natriuret Pep Total Protein Albumin Globulin Albumin/Globulin Ratio Triglycerides Cholesterol LDL Cholesterol, Calc HDL Cholesterol Lipase Procalcitonin TSH Urine RBC Urine WBC Ur Squamous Epith Cells Amorphous Sediment Urine Bacteria Ur Culture Indicated? Nasal Screen MRSA (PCR) Chlamy pneumoniae PCR Adenovirus (PCR) B. pertussis DNA (PCR) B.parapertussis DNA PCR Coronavirus OC43 (PCR) Coronavirus HKU1 (PCR) Coronavirus 229E (PCR) SARS-CoV-2 (PCR) Coronavirus NL63 (PCR) Human Metapneumovir PCR Influenza Type A (PCR) Influenza Type B (PCR) M. pneumoniae (PCR) Parainfluenza 1 (PCR) Parainfluenza 2 (PCR) Parainfluenza 3 (PCR) Parainfluenza 4 (PCR) RSV (PCR) Entero/Rhino (PCR) 05/17/21 08:10 WBC RBC Hgb Hct MCV MCH MCHC RDW Plt Count Neut % (Auto) Lymph % (Auto) [place] % (Auto) Eos % (Auto) Baso % (Auto) Neut # (Auto) Lymph # (Auto) [place] # (Auto) Eos # (Auto) Baso # (Auto) ESR PT 18.6 H D INR 1.7 H APTT 31 D-Dimer Sodium Potassium Chloride Carbon Dioxide BUN Creatinine Estimated GFR BUN/Creatinine Ratio Glucose Hemoglobin A1c Lactate Calcium Magnesium Total Bilirubin AST ALT Alkaline Phosphatase Total Creatine Kinase CK-MB (CK-2) CK-MB (CK-2) Rel Index Troponin I C-Reactive Protein NT-Pro-B Natriuret Pep Total Protein Albumin Globulin Albumin/Globulin Ratio Triglycerides Cholesterol LDL Cholesterol, Calc HDL Cholesterol Lipase Procalcitonin TSH Urine RBC Urine WBC Ur Squamous Epith Cells Amorphous Sediment Urine Bacteria Ur Culture Indicated? Nasal Screen MRSA (PCR) Chlamy pneumoniae PCR Adenovirus (PCR) B. pertussis DNA (PCR) B.parapertussis DNA PCR Coronavirus OC43 (PCR) Coronavirus HKU1 (PCR) Coronavirus 229E (PCR) SARS-CoV-2 (PCR) Coronavirus NL63 (PCR) Human Metapneumovir PCR Influenza Type A (PCR) Influenza Type B (PCR) M. pneumoniae (PCR) Parainfluenza 1 (PCR) Parainfluenza 2 (PCR) Parainfluenza 3 (PCR) Parainfluenza 4 (PCR) RSV (PCR) Entero/Rhino (PCR) Exam Vital Signs (past 8 hours): - 05/17/21 05:00 05/17/21 06:00 05/17/21 06:30 Temperature 97.8 F Pulse Rate 96 H 84 84 Respiratory Rate 19 21 24 Blood Pressure 90/52 L 92/54 L 88/50 L Pulse Oximetry 95 93 93 Oxygen Delivery Method Nasal Cannula Oxygen Flow Rate 3 Narrative Exam Narrative: NAD. Sitting up in bed. Quality TeleICU VTE Deep Vein Thrombosis/Pulmonary Embolism Present on Admission: No Assessment & Plan Assessment & Plan narrative: # Neck stiffness -- Concern for meningitis -- Will need LP and MRI brain -- Abx as below # Shock -- Secondary to sepsis vs hypovolemia -- On levophed 2 mcg -- Added stress dose steroids -- Cont IVF resuscitation -- Meningitis rx as below -- Titrate levophed for MAP goal > 65 # Meningitis -- On vanc/ceftriaxone/ampicillin/acyclovir -- Respiratory viral panel negative -- Pending LP today -- Recommend MRI brain w/wo contrast -- Further recommendation pending LP results # Chest pain -- Secondary to pleuritis vs ACS -- Troponin downtrending -- Pending TTE Case d/w hospitalist and RN at bedside. Time Spent With Patient Critical Care time: I spent a total of [] minutes of critical care time on this patient's care today; this time is exclusive of procedural time.
--- NOTE | 2021-05-17 10:01 | DI.MRI.S_ITS ---
PROCEDURE: MR HEAD/BRAIN WO/W CON INDICATIONS: altered mental status TECHNIQUE: Noncontrast axial T1 spin echo, axial T2 fast spin echo, sagittal and axial FLAIR, coronal T2 fast spin echo, axial gradient echo, axial diffusion and ADC through the brain. After the administration of contrast, axial and coronal 3D VIBE or T1 spin echo with fat saturation through the brain. COMPARISON: [facility], CT, CT HEAD/BRAIN WO CON, 05/17/2021, 7:50. FINDINGS: Image quality: Excellent. CSF Spaces: Basal cisterns are patent. No extra-axial fluid collections. Ventricles are normal in size and shape. Brain: No midline shift. No intracranial bleeds or masses. No abnormal intracranial enhancement. The brainstem appears normal. Diffusion-weighted images demonstrate no acute ischemic insults. No chronic ischemic insults. Normal intravascular flow voids are present. Skull and face: Calvarial marrow is normal in signal. Orbits appear normal. Sinuses: Sinuses and mastoids appear clear. IMPRESSION: 1. Negative brain MRI. No acute process. No recent infarct. Dictated by: Bernie Quiles M.D. on 05/17/2021 at 10:47 Approved by: Bernie Quiles M.D. on 05/17/2021 at 10:48
[2021-05-17] MEDS: HYDROCORTISONE 100 MG/2 ML VIAL 50 MG IV ×3 (12:24→23:34)
[2021-05-17] MEDS: POTASSIUM CHLORIDE 20 MEQ TAB 40 MEQ PO (15:21)
[2021-05-17] MEDS: MAGNESIUM CHLORIDE 64 MG TABLET 128 MG PO (15:22)
--- NOTE | 2021-05-17 15:26 | CM.DANOTE ---
Patient is a 61 yo female who was admitted on 05/16/21 for Left arm Pain. Pt has [employer] for insurance and her PCP is Piero Gresham. EMR was reviewed. Per MD, pt vaccinated COVID and admitted for leukocytosis from possible sepsis or meningitis. Pt to have Echo and Stress test. Pt currently getting IV-Abx and no hx of admissions to [facility]. Per RN, pt still feeling below baseline but is a medical massage therapist for employment and has a good understanding of medical care/needs. No concerns at this time regarding d/c when stable. MD ordered MRI for today and not stable for discharge yet today. Pt lives alone and is independent at baseline and works and no hx of SNF or HH and has supportive local friends. Plan: SW to follow closely to confirm safe plan of home at d/c and r/o IV-Abx at discharge. LAY Betancourt Discharge Planning/Care Management CM Discharge Assessment Start: 05/17/21 15:24 Freq: Status: Active Protocol: Document 05/17/21 15:25 BF (Rec: 05/17/21 15:26 BF [id number]) Discharge Planning Assessment Assigned Insole Cementer LAY Florentino Advance Directives? Yes Advance Directives on File No History Provided By Patient,Medical Record Has Patient been admitted in last 30 No days? Prior Living Arrangements House Household Members none Type of transporation used prior to Drives own vehicle admit Independent with ADL's Yes Is patient alert and oriented? Yes Caregiver for Another No Barriers to Discharge No Discharge Plan Home Transportation Arrangement likely friend to transport at d/c Referrals Initiated None needed Review Status In Process Please Provide Date Initial DC 05/17/21 Assessment Was Performed Next Review Type Continued Stay Review
--- NOTE | 2021-05-17 16:18 | P.PN_ITS ---
Subjective Subjective Date Patient Seen: 05/17/21 Time Patient Seen: 08:00 Interval history: Today she still has a stiff neck, her headache is improved. Her chest pain is intermittent but currently resolved. Exam Vital Signs (past 8 hours): - 05/17/21 09:00 05/17/21 10:00 05/17/21 12:00 Temperature 98.4 F 98.1 F Pulse Rate 94 H 85 99 H Respiratory Rate 22 21 Blood Pressure 106/55 L 107/58 L 116/75 Pulse Oximetry 93 95 94 05/17/21 13:00 05/17/21 14:00 05/17/21 15:00 Temperature Pulse Rate 102 H 108 H 104 H Respiratory Rate 25 H 32 H 21 Blood Pressure 127/67 Pulse Oximetry 94 90 L 91 05/17/21 16:16 Temperature Pulse Rate 100 H Respiratory Rate 25 H Blood Pressure 127/66 Pulse Oximetry 90 L Oxygen Delivery Method Room Air Oxygen Flow Rate 0 Narrative Exam Narrative: General:?no acute distress HEENT:? neck is stiff and painful when attempt chin to chest Lungs:? clear bilaterally Cardio:?tachycardic, no murmurs Abdomen:? Soft nontender nontender, no organomegaly, normal bowel sounds Objective Labs Result Diagrams: 05/17/21 08:10 05/17/21 04:30 Labs: Laboratory Results - last 24 hr 05/16/21 05/16/21 05/16/21 15:55 18:30 20:57 WBC RBC Hgb Hct MCV MCH MCHC RDW Plt Count Neut % (Auto) Lymph % (Auto) Wayne % (Auto) Eos % (Auto) Baso % (Auto) Neut # (Auto) Lymph # (Auto) Wayne # (Auto) Eos # (Auto) Baso # (Auto) ESR PT INR APTT Sodium Potassium Chloride Carbon Dioxide BUN Creatinine Estimated GFR BUN/Creatinine Ratio Glucose Hemoglobin A1c Lactate Calcium Magnesium Troponin I 0.032 0.023 C-Reactive Protein NT-Pro-B Natriuret Pep Triglycerides Cholesterol LDL Cholesterol, Calc HDL Cholesterol Procalcitonin TSH Urine RBC 1-5/hpf Urine WBC 1-5/hpf Ur Squamous Epith Cells 0-1 /hpf Amorphous Sediment 1+ Urine Bacteria Occasional (0-1) Ur Culture Indicated? Cult not indicated Nasal Screen MRSA (PCR) Chlamy pneumoniae PCR Adenovirus (PCR) B. pertussis DNA (PCR) B.parapertussis DNA PCR Coronavirus OC43 (PCR) Coronavirus HKU1 (PCR) Coronavirus 229E (PCR) SARS-CoV-2 (PCR) Coronavirus NL63 (PCR) Human Metapneumovir PCR Influenza Type A (PCR) Influenza Type B (PCR) M. pneumoniae (PCR) Parainfluenza 1 (PCR) Parainfluenza 2 (PCR) Parainfluenza 3 (PCR) Parainfluenza 4 (PCR) RSV (PCR) Entero/Rhino (PCR) 05/16/21 05/16/21 05/16/21 20:57 20:57 20:57 WBC RBC Hgb Hct MCV MCH MCHC RDW Plt Count Neut % (Auto) Lymph % (Auto) Wayne % (Auto) Eos % (Auto) Baso % (Auto) Neut # (Auto) Lymph # (Auto) Wayne # (Auto) Eos # (Auto) Baso # (Auto) ESR PT INR APTT Sodium Potassium Chloride Carbon Dioxide BUN Creatinine Estimated GFR BUN/Creatinine Ratio Glucose Hemoglobin A1c Lactate Calcium Magnesium 1.6 Troponin I C-Reactive Protein NT-Pro-B Natriuret Pep Triglycerides 35 Cholesterol 139 L LDL Cholesterol, Calc 72 HDL Cholesterol 60 Procalcitonin 4.91 H TSH Urine RBC Urine WBC Ur Squamous Epith Cells Amorphous Sediment Urine Bacteria Ur Culture Indicated? Nasal Screen MRSA (PCR) Chlamy pneumoniae PCR Adenovirus (PCR) B. pertussis DNA (PCR) B.parapertussis DNA PCR Coronavirus OC43 (PCR) Coronavirus HKU1 (PCR) Coronavirus 229E (PCR) SARS-CoV-2 (PCR) Coronavirus NL63 (PCR) Human Metapneumovir PCR Influenza Type A (PCR) Influenza Type B (PCR) M. pneumoniae (PCR) Parainfluenza 1 (PCR) Parainfluenza 2 (PCR) Parainfluenza 3 (PCR) Parainfluenza 4 (PCR) RSV (PCR) Entero/Rhino (PCR) 05/16/21 05/16/21 05/16/21 20:57 20:57 21:10 WBC RBC Hgb Hct MCV MCH MCHC RDW Plt Count Neut % (Auto) Lymph % (Auto) Wayne % (Auto) Eos % (Auto) Baso % (Auto) Neut # (Auto) Lymph # (Auto) Wayne # (Auto) Eos # (Auto) Baso # (Auto) ESR PT INR APTT Sodium Potassium Chloride Carbon Dioxide BUN Creatinine Estimated GFR BUN/Creatinine Ratio Glucose Hemoglobin A1c 5.1 Lactate Calcium Magnesium Troponin I C-Reactive Protein NT-Pro-B Natriuret Pep Triglycerides Cholesterol LDL Cholesterol, Calc HDL Cholesterol Procalcitonin TSH 0.63 Urine RBC Urine WBC Ur Squamous Epith Cells Amorphous Sediment Urine Bacteria Ur Culture Indicated? Nasal Screen MRSA (PCR) Chlamy pneumoniae PCR Not detected Adenovirus (PCR) Not detected B. pertussis DNA (PCR) Not detected B.parapertussis DNA PCR Not detected Coronavirus OC43 (PCR) Not detected Coronavirus HKU1 (PCR) Not detected Coronavirus 229E (PCR) Not detected SARS-CoV-2 (PCR) Not detected Coronavirus NL63 (PCR) Not detected Human Metapneumovir PCR Not detected Influenza Type A (PCR) Not detected Influenza Type B (PCR) Not detected M. pneumoniae (PCR) Not detected Parainfluenza 1 (PCR) Not detected Parainfluenza 2 (PCR) Not detected Parainfluenza 3 (PCR) Not detected Parainfluenza 4 (PCR) Not detected RSV (PCR) Not detected Entero/Rhino (PCR) Not detected 05/17/21 05/17/21 05/17/21 01:05 01:05 03:45 WBC RBC Hgb Hct MCV MCH MCHC RDW Plt Count Neut % (Auto) Lymph % (Auto) Wayne % (Auto) Eos % (Auto) Baso % (Auto) Neut # (Auto) Lymph # (Auto) Wayne # (Auto) Eos # (Auto) Baso # (Auto) ESR PT INR APTT Sodium Potassium Chloride Carbon Dioxide BUN Creatinine Estimated GFR BUN/Creatinine Ratio Glucose Hemoglobin A1c Lactate 2.5 H Calcium Magnesium Troponin I 0.015 C-Reactive Protein NT-Pro-B Natriuret Pep Triglycerides Cholesterol LDL Cholesterol, Calc HDL Cholesterol Procalcitonin TSH Urine RBC Urine WBC Ur Squamous Epith Cells Amorphous Sediment Urine Bacteria Ur Culture Indicated? Nasal Screen MRSA (PCR) Negative for mrsa Chlamy pneumoniae PCR Adenovirus (PCR) B. pertussis DNA (PCR) B.parapertussis DNA PCR Coronavirus OC43 (PCR) Coronavirus HKU1 (PCR) Coronavirus 229E (PCR) SARS-CoV-2 (PCR) Coronavirus NL63 (PCR) Human Metapneumovir PCR Influenza Type A (PCR) Influenza Type B (PCR) M. pneumoniae (PCR) Parainfluenza 1 (PCR) Parainfluenza 2 (PCR) Parainfluenza 3 (PCR) Parainfluenza 4 (PCR) RSV (PCR) Entero/Rhino (PCR) 05/17/21 05/17/21 05/17/21 04:30 04:30 04:30 WBC 9.6 RBC 3.47 L Hgb 11.0 L Hct 31.9 L MCV 91.9 MCH 31.6 MCHC 34.4 RDW 13.2 Plt Count 96 L Neut % (Auto) 87.7 H Lymph % (Auto) 5.5 L Wayne % (Auto) 6.5 Eos % (Auto) 0.0 L Baso % (Auto) 0.3 Neut # (Auto) 8400 H Lymph # (Auto) 500 L Wayne # (Auto) 600 Eos # (Auto) 0 Baso # (Auto) 0 ESR PT INR APTT Sodium 132 L Potassium 3.5 Chloride 101 Carbon Dioxide 24 BUN 17 Creatinine 0.86 Estimated GFR > 60.0 BUN/Creatinine Ratio 19.8 Glucose 150 H Hemoglobin A1c Lactate Calcium 8.0 L Magnesium Troponin I 0.016 C-Reactive Protein NT-Pro-B Natriuret Pep 2590 H Triglycerides Cholesterol LDL Cholesterol, Calc HDL Cholesterol Procalcitonin TSH Urine RBC Urine WBC Ur Squamous Epith Cells Amorphous Sediment Urine Bacteria Ur Culture Indicated? Nasal Screen MRSA (PCR) Chlamy pneumoniae PCR Adenovirus (PCR) B. pertussis DNA (PCR) B.parapertussis DNA PCR Coronavirus OC43 (PCR) Coronavirus HKU1 (PCR) Coronavirus 229E (PCR) SARS-CoV-2 (PCR) Coronavirus NL63 (PCR) Human Metapneumovir PCR Influenza Type A (PCR) Influenza Type B (PCR) M. pneumoniae (PCR) Parainfluenza 1 (PCR) Parainfluenza 2 (PCR) Parainfluenza 3 (PCR) Parainfluenza 4 (PCR) RSV (PCR) Entero/Rhino (PCR) 05/17/21 05/17/21 05/17/21 04:30 04:30 04:30 WBC RBC Hgb Hct MCV MCH MCHC RDW Plt Count Neut % (Auto) Lymph % (Auto) Wayne % (Auto) Eos % (Auto) Baso % (Auto) Neut # (Auto) Lymph # (Auto) Wayne # (Auto) Eos # (Auto) Baso # (Auto) ESR 38 H PT INR APTT Sodium Potassium Chloride Carbon Dioxide BUN Creatinine Estimated GFR BUN/Creatinine Ratio Glucose Hemoglobin A1c Lactate 1.5 Calcium Magnesium Troponin I C-Reactive Protein 19.9 H NT-Pro-B Natriuret Pep Triglycerides Cholesterol LDL Cholesterol, Calc HDL Cholesterol Procalcitonin TSH Urine RBC Urine WBC Ur Squamous Epith Cells Amorphous Sediment Urine Bacteria Ur Culture Indicated? Nasal Screen MRSA (PCR) Chlamy pneumoniae PCR Adenovirus (PCR) B. pertussis DNA (PCR) B.parapertussis DNA PCR Coronavirus OC43 (PCR) Coronavirus HKU1 (PCR) Coronavirus 229E (PCR) SARS-CoV-2 (PCR) Coronavirus NL63 (PCR) Human Metapneumovir PCR Influenza Type A (PCR) Influenza Type B (PCR) M. pneumoniae (PCR) Parainfluenza 1 (PCR) Parainfluenza 2 (PCR) Parainfluenza 3 (PCR) Parainfluenza 4 (PCR) RSV (PCR) Entero/Rhino (PCR) 05/17/21 05/17/21 08:10 08:10 WBC RBC Hgb Hct MCV MCH MCHC RDW Plt Count 98 L Neut % (Auto) Lymph % (Auto) Wayne % (Auto) Eos % (Auto) Baso % (Auto) Neut # (Auto) Lymph # (Auto) Wayne # (Auto) Eos # (Auto) Baso # (Auto) ESR PT 18.6 H D INR 1.7 H APTT 31 Sodium Potassium Chloride Carbon Dioxide BUN Creatinine Estimated GFR BUN/Creatinine Ratio Glucose Hemoglobin A1c Lactate Calcium Magnesium Troponin I C-Reactive Protein NT-Pro-B Natriuret Pep Triglycerides Cholesterol LDL Cholesterol, Calc HDL Cholesterol Procalcitonin TSH Urine RBC Urine WBC Ur Squamous Epith Cells Amorphous Sediment Urine Bacteria Ur Culture Indicated? Nasal Screen MRSA (PCR) Chlamy pneumoniae PCR Adenovirus (PCR) B. pertussis DNA (PCR) B.parapertussis DNA PCR Coronavirus OC43 (PCR) Coronavirus HKU1 (PCR) Coronavirus 229E (PCR) SARS-CoV-2 (PCR) Coronavirus NL63 (PCR) Human Metapneumovir PCR Influenza Type A (PCR) Influenza Type B (PCR) M. pneumoniae (PCR) Parainfluenza 1 (PCR) Parainfluenza 2 (PCR) Parainfluenza 3 (PCR) Parainfluenza 4 (PCR) RSV (PCR) Entero/Rhino (PCR) [facility] Medical History Adrenal abnormality (~1989) Amenorrhea (~2015) Anemia (~2010) Asthma (~2008) Chicken pox (~1962) Chronic back pain (~2017) Chronic cough Colon polyps (~1999) Fibroids (~2016) Heavy menstrual period (~2010) Kidney disease (~1988) Liver disease (~2018) Low back pain (~2017) Measles (~1964) Menopause (~2016) Mononucleosis (~1978) Mumps (~1965) Painful menstrual periods Proteinuria (~1988) Surgical History Anesthesia History of colonoscopy History of laparoscopy (~1991) Status post biopsy of uterine cervix (~2018) Family History Father Diabetes mellitus History of heart disease Hypertension Colon cancer Hyperlipidemia Mother Ovarian cancer Smoker Grandfather Cancer Grandmother Diabetes mellitus Colon cancer Grandmother Alzheimer's disease Breast cancer Grandfather History of heart disease Family/Other Asthma Social History household members: none Smoking Status: Never smoker alcohol intake: current substance use type: does not use Assessment & Plan Assessment & Plan narrative: 1. Septic shock with concern for meningitis -on levophed overnight, has been able to dc -continue vanco/ceftriaxone/ampicillin/acyclovir -respiratory panel negative -follow up blood cultures -LP attempted, but INR elevated, will attempt to fix 2. Chest pain, acute -initial troponin borderline elevated and then downtrending -ECHO showed no acute process -possibly secondary to pleuritis 3. Morbid obesity -BMI 40.6, follow up as outpatient 4. Thrombocytopenia -likely secondary to sepsis -continue to monitor daily 5. Elevated INR -etiology unknown -continue to monitor INR daily -ordered for IV vitamin K Time Spent With Patient Critical Care time: I spent a total of [] minutes of critical care time on this patient's care today; this time is exclusive of procedural time. Quality VTE Deep Vein Thrombosis/Pulmonary Embolism Present on Admission: No
[2021-05-17] MEDS: PHYTONADIONE (VIT K1) 5 MG in SODIUM CHLORIDE 0.9% 100 ML 201 ML IV (16:41)
[2021-05-17] MEDS: SODIUM CHLORIDE 0.9% 250 ML 21 ML IV (17:30)
[2021-05-18] VITALS (16 sets, daily range): BP systolic 106–139; BP diastolic 59–72; PULSE 64–87; RESP 13–30; TEMP 36.3–36.6; O2SAT 93–98
[2021-05-18] MEDS: cefTRIAXone 2,000 MG in SODIUM CHLORIDE 0.9% 100 ML 200 ML IV ×2 (01:11→14:32)
[2021-05-18] MEDS: WATER IV ×3 (01:36→17:06)
[2021-05-18] MEDS: ACYCLOVIR IV ×3 (01:36→17:06)
[2021-05-18] MEDS: DEXTROSE 5% IV ×3 (01:36→17:06)
[2021-05-18] MEDS: AMPICILLIN 2,000 MG in SODIUM CHLORIDE 0.9% 100 ML 200 ML IV ×6 (02:11→22:56)
[2021-05-18] MEDS: HYDROMORPHONE 2 MG TABLET PO (02:16)
[2021-05-18] MEDS: VANCOMYCIN 1,000 MG/200 ML PIGGYBACK 200 MG IV ×3 (04:16→22:56)
[2021-05-18] MEDS: SODIUM CHLORIDE 0.9% FLUSH 10 ML IV (04:19)
[2021-05-18 04:44] LABS: Hematocrit 31.1 % (36-46); Hemoglobin 10.6 g/dL (12.0-16.0); Mean Corpuscular HGB Conc 34.2 % (30-36); Mean Corpuscular Hemoglobin 31.7 PG (26-34); Mean Corpuscular Volume 92.7 fL (80-100); Platelet Count 72 X10^3/uL (150-400); Red Blood Cell Count 3.36 X10^6/uL (4.0-5.2); Red Cell Distribution Width 13.4 % (11.6-14.8); White Blood Cell Count 8.6 X10^3/uL (4.5-11.0)
[2021-05-18 04:49] LABS: INR 1.6 (0.9-1.3); Prothrombin Time 17.8 SECONDS (10.1-12.7)
[2021-05-18 04:54] LABS: BUN Creatinine Ratio 27.2 (6-22); Blood Urea Nitrogen 22 mg/dL (7-17); Calcium 8.1 mg/dL (8.4-10.2); Carbon Dioxide 26 mmol/L (22-32); Chloride 100 mmol/L (98-107); Estimated Glomerular Filt Rate > 60.0 mL/min (>60); Glucose 167 mg/dL (80-110); HEMOLYSIS < 15 (0-50); Potassium 3.8 mmol/L (3.4-5.1); Sodium 132 mmol/L (137-145)
[2021-05-18] MEDS: HYDROCORTISONE 100 MG/2 ML VIAL 50 MG IV (06:11)
[2021-05-18] MEDS: SODIUM CHLORIDE 0.9% 250 ML 21 ML IV (06:13)
--- NOTE | 2021-05-18 06:35 | PC.NURSE ---
Shift Note-Patient states she is still fatigued, has intermittent nausea without emesis, and body aches and painful swallowing, but overall improved, was able to doze, PO Dilaudid given for pain-effective. VSS, SR, BP stable, afebrile, see vital trends. Encouraging fluid intake, all previously ordered abx continue, see Emar. 475ml UOP from [facility], cloudy cristóbal.
--- NOTE | 2021-05-18 09:37 | PM.PN.EICU ---
Subjective Subjective :: This patient was seen via real time interactive two-way audiovisual telecommunication. No acute issues overnight. Holding LP due to worsening thrombocytopenia. Off levophed X 24 hours. Subjectively patient reports feeling better overall. No reported hx of hepatitis or HIV infection. MRI brain: 1. Negative brain MRI.? No acute process.? No recent infarct.? TTE: The left ventricle is normal in size and wall thickness. Left ventricular systolic function appears normal without focal wall motion abnormalities. The ejection fraction is estimated to be 55-60%. Diastolic function could not be accurately assessed due to contradictory data. ? The right ventricle is normal in size and function. The right ventricular systolic pressure is estimated to be at least 25 mmHg based on an estimated right atrial pressure of 3 mm Hg. Current Medications Current Medications Medications: Home Medications multivitamin (Multiple Vitamins) 1 tab PO QDAY #0 09/17/17 [History Confirmed 05/17/21] albuterol sulfate 90 mcg/actuation aerosol inhaler 2 puff INHALATION Q4-6H PRN #18 g 08/11/20 [Rx Confirmed 05/17/21] Visit Medications (administered) Generic Name Dose Route Start Last Admin Trade Name Freq PRN Reason Stop Dose Admin Acetaminophen 650 mg 05/16/21 19:59 05/16/21 21:28 Acetaminophen 325 Mg Tablet PO 650 mg Q6HR PRN Administration Fever/Mild Pain (1-3) Heparin Sodium (Porcine) 50 unit 05/17/21 03:41 05/18/21 04:20 Heparin Flush (Cl/Picc/Mid-Line) 50 Unit/5 Ml Syringe IV 50 unit PRN PRN Administration Flush Hydromorphone HCl 2 mg 05/17/21 03:09 05/18/21 02:16 Hydromorphone 2 Mg Tablet PO 2 mg Q4HR PRN Administration Pain, Severe (7-10) Norepinephrine Bitartrate 4 mg 254 mls @ 30.48 mls/hr 05/17/21 01:15 05/17/21 11:49 / Dextrose IV Infused TITRATE HOLGER Titration Protocol 8 MCG/MIN Ceftriaxone Sodium 2,000 mg/ 100 mls @ 200 mls/hr 05/17/21 01:15 05/18/21 02:12 Sodium Chloride IV Infused Q12H HOLGER Infusion Ampicillin Sodium 2,000 mg/ 100 mls @ 200 mls/hr 05/17/21 01:30 05/18/21 07:14 Sodium Chloride IV Infused Q4H HOLGER Infusion Acyclovir 1,140 mg/ Dextrose 250 mls @ 250 mls/hr 05/17/21 01:30 05/18/21 03:05 IV Infused Q8H HOLGER Infusion Vancomycin HCl 1,000 mg in 200 mls @ 200 mls/hr 05/17/21 12:00 05/18/21 06:11 Vancomycin IV Infused Q8H HOLGER Infusion Sodium Chloride 250 mls @ 21 mls/hr 05/17/21 17:57 05/18/21 06:13 Normal Saline 0.9% IV 21 mls/hr Q24H PRN Administration Flush Ketorolac Tromethamine 30 mg 05/17/21 03:09 05/17/21 03:27 Ketorolac 30 Mg/Ml Vial IV 05/22/21 03:09 30 mg Q6H PRN Administration Pain, Moderate (4-6) Sodium Chloride 10 ml 05/17/21 03:42 05/18/21 04:19 Sodium Chloride 0.9% Flush IV 10 ml PRN PRN Administration Flush Objective Labs Result Diagrams: 05/18/21 04:30 05/18/21 04:30 Labs: Laboratory Results - last 24 hr 05/18/21 05/18/21 05/18/21 04:30 04:30 04:30 WBC 8.6 RBC 3.36 L Hgb 10.6 L Hct 31.1 L MCV 92.7 MCH 31.7 MCHC 34.2 RDW 13.4 Plt Count 72 L PT 17.8 H INR 1.6 H Sodium 132 L Potassium 3.8 Chloride 100 Carbon Dioxide 26 BUN 22 H Creatinine 0.81 Estimated GFR > 60.0 BUN/Creatinine Ratio 27.2 H Glucose 167 H Calcium 8.1 L Exam Vital Signs (past 8 hours): - 05/18/21 02:00 05/18/21 03:00 05/18/21 04:00 Pulse Rate 78 79 80 Respiratory Rate 19 14 13 Blood Pressure 117/67 139/72 129/59 L Pulse Oximetry 96 94 94 05/18/21 04:43 05/18/21 05:00 05/18/21 06:00 Pulse Rate 70 65 Respiratory Rate 14 13 Blood Pressure 122/66 122/60 Pulse Oximetry 94 93 95 05/18/21 07:00 05/18/21 08:00 Pulse Rate 64 87 Respiratory Rate 13 26 H Blood Pressure 123/59 L 121/70 Pulse Oximetry 94 95 Oxygen Delivery Method Nasal Cannula Oxygen Flow Rate 1 Narrative Exam Narrative: Appears nontoxic. Sitting up in bed speaking in full sentence. Quality TeleICU VTE Deep Vein Thrombosis/Pulmonary Embolism Present on Admission: No Assessment & Plan Assessment & Plan narrative: # Neck stiffness -- MRI brain negative -- Currently being rx for meningitis given viral syndrome -- Pending LP when PLTs and INR improved -- Abx as below # Shock? -- Resolved -- Stop stress dose steroids -- Encourage PO intake -- Sepsis rx as below -- MAP goal > 65 # Meningitis -- On vanc/ceftriaxone/ampicillin/acyclovir -- Respiratory viral panel negative -- Pending LP when PLT and INR imporved # Chest pain -- TTE showed preserved LV function with no focal wall motion abnormality -- If recur then may benefit from stress test for further evaluation -- Monitor on telemetry # Thrombocytopenia -- Secondary to consumption from sepsis vs DIC vs viral infection -- Recommend checking HIV and hepatitis panel -- Calculated 4T score 1, making HIT unlikely -- Cont sepsis rx as above -- Will send for fibrinogen to rule out DIC -- Daily CBC # Coagulaopathy -- Secondary to sepsis vs liver dysfunction -- Check liver panel -- Check fibrinogen -- Daily PT/INR D/w patient, hospitalist, RN, RT, and pharmacist. Okay to downgrade to med surg w/ telemetry. Time Spent With Patient Critical Care time: I spent a total of [] minutes of critical care time on this patient's care today; this time is exclusive of procedural time.
[2021-05-18 10:24] LABS: Fibrinogen 690 mg/dL (211-428)
[2021-05-18 10:27] LABS: Alanine Aminotransferase 29 IU/L (<35); Albumin 3.1 g/dL (3.5-5.0); Albumin Globulin Ratio 1.1 (1.0-2.8); Alkaline Phosphatase 62 U/L (38-126); Aspartate Aminotransferase 19 IU/L (14-36); Bilirubin Total 0.4 mg/dL (0.2-1.3); Bilirubin Unconjugated 0.3 mg/dL (0.0-1.1); Globulin 2.8 g/dL (1.7-4.1); HEMOLYSIS < 15 (0-50); Total Protein 5.9 g/dL (6.3-8.2)
[2021-05-18] MEDS: ACETAMINOPHEN 325 MG TABLET 650 MG PO (11:03)
--- NOTE | 2021-05-18 11:32 | PM.PN.1 ---
Subjective Subjective Date Patient Seen: 05/18/21 Time Patient Seen: 08:00 Interval history: Today she feels improved. Less body aches. Her chest pain is resolved. Her neck stiffness is less than yesterday. LP unable to be done yesterday due to elevated INR. She did receive IV vitamin K. Exam Vital Signs (past 8 hours): - 05/18/21 04:00 05/18/21 04:43 05/18/21 05:00 Pulse Rate 80 70 Respiratory Rate 13 14 Blood Pressure 129/59 L 122/66 Pulse Oximetry 94 94 93 05/18/21 06:00 05/18/21 07:00 05/18/21 08:00 Pulse Rate 65 64 87 Respiratory Rate 13 13 26 H Blood Pressure 122/60 123/59 L 121/70 Pulse Oximetry 95 94 95 Oxygen Delivery Method Nasal Cannula Oxygen Flow Rate 1 Narrative Exam Narrative: General:?no acute distress HEENT:? neck is stiff and painful when attempt chin to chest, but increased mobility from yesterday Lungs:? clear bilaterally Cardio:?tachycardic, no murmurs Abdomen:? Soft nontender nontender, no organomegaly, normal bowel sounds Objective Labs Result Diagrams: 05/18/21 04:30 05/18/21 04:30 Labs: Laboratory Results - last 24 hr 05/18/21 05/18/21 05/18/21 04:30 04:30 04:30 WBC 8.6 RBC 3.36 L Hgb 10.6 L Hct 31.1 L MCV 92.7 MCH 31.7 MCHC 34.2 RDW 13.4 Plt Count 72 L PT 17.8 H INR 1.6 H Fibrinogen Sodium 132 L Potassium 3.8 Chloride 100 Carbon Dioxide 26 BUN 22 H Creatinine 0.81 Estimated GFR > 60.0 BUN/Creatinine Ratio 27.2 H Glucose 167 H Calcium 8.1 L Total Bilirubin Conjugated Bilirubin Unconjugated Bilirubin AST ALT Alkaline Phosphatase Total Protein Albumin Globulin Albumin/Globulin Ratio 05/18/21 05/18/21 10:03 10:03 WBC RBC Hgb Hct MCV MCH MCHC RDW Plt Count PT INR Fibrinogen 690 H Sodium Potassium Chloride Carbon Dioxide BUN Creatinine Estimated GFR BUN/Creatinine Ratio Glucose Calcium Total Bilirubin 0.4 Conjugated Bilirubin 0.0 Unconjugated Bilirubin 0.3 AST 19 ALT 29 Alkaline Phosphatase 62 Total Protein 5.9 L Albumin 3.1 L Globulin 2.8 Albumin/Globulin Ratio 1.1 [facility] Medical History Adrenal abnormality (~1989) Amenorrhea (~2015) Anemia (~2010) Asthma (~2008) Chicken pox (~1962) Chronic back pain (~2017) Chronic cough Colon polyps (~1999) Fibroids (~2016) Heavy menstrual period (~2010) Kidney disease (~1988) Liver disease (~2018) Low back pain (~2017) Measles (~1964) Menopause (~2016) Mononucleosis (~1978) Mumps (~1965) Painful menstrual periods Proteinuria (~1988) Surgical History Anesthesia History of colonoscopy History of laparoscopy (~1991) Status post biopsy of uterine cervix (~2018) Family History Father Diabetes mellitus History of heart disease Hypertension Colon cancer Hyperlipidemia Mother Ovarian cancer Smoker Grandfather Cancer Grandmother Diabetes mellitus Colon cancer Grandmother Alzheimer's disease Breast cancer Grandfather History of heart disease Family/Other Asthma Social History household members: none Smoking Status: Never smoker alcohol intake: current substance use type: does not use Assessment & Plan Assessment & Plan narrative: 1. Septic shock with concern for meningitis -on levophed morning of 05/17, has been dc'd over 24 hours -continue vanco/ceftriaxone/ampicillin/acyclovir -respiratory panel negative -follow up blood cultures -LP attempted, but INR elevated, did not significantly improve with vitamin K, hold off on LP until INR improved -MRI head and CT head showed no acute process -check lfts, hepatitis serologies, hiv 2. Chest pain, acute -initial troponin borderline elevated and then downtrending -ECHO showed no acute process -possibly secondary to pleuritis 3. Morbid obesity -BMI 40.6, follow up as outpatient 4. Thrombocytopenia -likely secondary to sepsis -continue to monitor daily -consider sending HIT ab if continues to drop -no lovenox/heparin for now 5. Elevated INR -etiology unknown -continue to monitor INR daily -ordered for IV vitamin K did not improve INR significantly -fibrinogen level mildly elevated, ruled out DIC Time Spent With Patient Critical Care time: I spent a total of [] minutes of critical care time on this patient's care today; this time is exclusive of procedural time. Quality VTE Deep Vein Thrombosis/Pulmonary Embolism Present on Admission: No
[2021-05-18 11:48] LABS: Hepatitis B Surface Antigen NEGATIVE s/c (NEGATIVE)
[2021-05-18 11:55] LABS: HIV 1 & 2 Ab/Ag 4th Gen Combo NEGATIVE (NEGATIVE)
[2021-05-18 12:18] LABS: Vancomycin Trough 14.1 ug/mL (10-20)
[2021-05-18 16:54] LABS: Vancomycin Peak 23.9 ug/mL (20-40)
[2021-05-18] MEDS: KETOROLAC 30 MG/ML VIAL IV (18:04)
[2021-05-18 19:58] LABS: BUN Creatinine Ratio 25.7 (6-22); Blood Urea Nitrogen 27 mg/dL (7-17); Calcium 8.3 mg/dL (8.4-10.2); Carbon Dioxide 26 mmol/L (22-32); Chloride 106 mmol/L (98-107); Estimated Glomerular Filt Rate 53.3 mL/min (>60); Glucose 134 mg/dL (80-110); HEMOLYSIS < 15 (0-50); Magnesium 2.1 mg/dL (1.6-2.3); Phosphorous 2.3 mg/dL (2.8-4.1); Sodium 136 mmol/L (137-145)
[2021-05-19] VITALS (9 sets, daily range): BP systolic 129–164; BP diastolic 60–83; PULSE 77–94; RESP 17–32; TEMP 36.3–37.1; O2SAT 93–98
[2021-05-19] MEDS: WATER IV ×3 (01:14→18:12)
[2021-05-19] MEDS: ACYCLOVIR IV ×3 (01:14→18:12)
[2021-05-19] MEDS: DEXTROSE 5% IV ×3 (01:14→18:12)
[2021-05-19] MEDS: KETOROLAC 30 MG/ML VIAL IV (01:28)
[2021-05-19] MEDS: cefTRIAXone 2,000 MG in SODIUM CHLORIDE 0.9% 100 ML 200 ML IV ×2 (01:33→15:42)
[2021-05-19] MEDS: AMPICILLIN 2,000 MG in SODIUM CHLORIDE 0.9% 100 ML 200 ML IV ×4 (02:08→21:33)
[2021-05-19] MEDS: SODIUM CHLORIDE 0.9% 250 ML 21 ML IV (04:35)
[2021-05-19] MEDS: SODIUM CHLORIDE 0.9% FLUSH 10 ML IV ×2 (04:36→21:33)
[2021-05-19] MEDS: VANCOMYCIN 1,000 MG/200 ML PIGGYBACK 200 MG IV ×3 (04:36→19:59)
[2021-05-19 04:59] LABS: Hematocrit 30.9 % (36-46); Hemoglobin 10.6 g/dL (12.0-16.0); Mean Corpuscular HGB Conc 34.3 % (30-36); Mean Corpuscular Hemoglobin 31.5 PG (26-34); Mean Corpuscular Volume 91.7 fL (80-100); Platelet Count 74 X10^3/uL (150-400); Red Blood Cell Count 3.37 X10^6/uL (4.0-5.2); Red Cell Distribution Width 13.4 % (11.6-14.8); White Blood Cell Count 7.9 X10^3/uL (4.5-11.0)
[2021-05-19 05:02] LABS: INR 1.2 (0.9-1.3); Prothrombin Time 13.8 SECONDS (10.1-12.7)
[2021-05-19 05:07] LABS: BUN Creatinine Ratio 30.6 (6-22); Blood Urea Nitrogen 30 mg/dL (7-17); Calcium 8.1 mg/dL (8.4-10.2); Carbon Dioxide 25 mmol/L (22-32); Chloride 108 mmol/L (98-107); Estimated Glomerular Filt Rate 57.7 mL/min (>60); Glucose 102 mg/dL (80-110); HEMOLYSIS < 15 (0-50); Potassium 3.2 mmol/L (3.4-5.1); Sodium 136 mmol/L (137-145)
[2021-05-19 06:18] LABS: Hepatitis A Ab Total Negative (Negative); Hepatitis B Surf Ab Qualitativ Non Reactive (.)
--- NOTE | 2021-05-19 06:38 | PC.NURSE ---
Patient states that she is over-all feeling much improved over yesterday, Medicated once during night with Toradol for complaints of felipa hand pain. Patient states that she is having no pain this am in hands. Remains afebrile. Lungs diminished/clear. RA sats 95%. [facility] draining cristóbal urine with greater than 1000 ml over 12 hours.
[2021-05-19 06:43] LABS: Hepatitis B Core Antibody Negative (Negative)
[2021-05-19] MEDS: AMPICILLIN 2,000 MG in SODIUM CHLORIDE 0.9% 100 ML IV ×2 (09:33→15:38)
[2021-05-19] MEDS: POTASSIUM CHLORIDE 20 MEQ TAB 40 MEQ PO ×2 (09:39→15:38)
--- NOTE | 2021-05-19 10:56 | CM.DPNOTE ---
DCP Note Patient discussed in multidisciplinary rounds this morning. Medical management continues for Septic shock with concern for meningitis, patient expected to remain admitted over the weekend w/possible DC Friday05.21.21 DC home w/friends is anticipated when medically stable. Likely po abx; CM team will continue to follow closely as medical plan of care unfolds. Will reassess needs if patient requires ongoing IV abx upon DC JW
--- NOTE | 2021-05-19 11:19 | PM.PN.1 ---
Subjective Subjective Date Patient Seen: 05/19/21 Time Patient Seen: 08:00 Interval history: Today she feels quite improved. Her neck stiffness is significantly better Exam Vital Signs (past 8 hours): - 05/19/21 04:00 05/19/21 05:30 05/19/21 08:00 Temperature 98.2 F 97.8 F Pulse Rate 77 81 Respiratory Rate 18 19 Blood Pressure 132/60 135/72 Pulse Oximetry 94 93 97 Oxygen Delivery Method Room Air Oxygen Flow Rate 0 Narrative Exam Narrative: General:?no acute distress HEENT: neck with much improved range of motion and no pain Lungs:? clear bilaterally Cardio:?tachycardic, no murmurs Abdomen:? Soft nontender nontender, no organomegaly, normal bowel sounds Objective Labs Result Diagrams: 05/19/21 04:45 05/19/21 04:45 Labs: Laboratory Results - last 24 hr 05/18/21 05/18/21 05/18/21 07:25 10:03 10:03 WBC RBC Hgb Hct MCV MCH MCHC RDW Plt Count PT INR Sodium 136 L Potassium 3.0 L Chloride 106 Carbon Dioxide 26 BUN 27 H Creatinine 1.05 H Estimated GFR 53.3 L BUN/Creatinine Ratio 25.7 H Glucose 134 H Calcium 8.3 L Phosphorus 2.3 L Magnesium 2.1 Vancomycin Peak Vancomycin Trough Hepatitis A Total & IgM Hep Bs Antigen Negative Hep Bs Antibody Non reactive Hep B Core Total Ab HIV 1&2 Ab/P24 Ag 4thGn Negative 05/18/21 05/18/21 05/18/21 10:03 10:03 11:30 WBC RBC Hgb Hct MCV MCH MCHC RDW Plt Count PT INR Sodium Potassium Chloride Carbon Dioxide BUN Creatinine Estimated GFR BUN/Creatinine Ratio Glucose Calcium Phosphorus Magnesium Vancomycin Peak Vancomycin Trough 14.1 Hepatitis A Total & IgM Negative Hep Bs Antigen Hep Bs Antibody Hep B Core Total Ab Negative HIV 1&2 Ab/P24 Ag 4thGn 05/18/21 05/19/21 05/19/21 15:05 04:45 04:45 WBC 7.9 RBC 3.37 L Hgb 10.6 L Hct 30.9 L MCV 91.7 MCH 31.5 MCHC 34.3 RDW 13.4 Plt Count 74 L PT 13.8 H INR 1.2 Sodium Potassium Chloride Carbon Dioxide BUN Creatinine Estimated GFR BUN/Creatinine Ratio Glucose Calcium Phosphorus Magnesium Vancomycin Peak 23.9 Vancomycin Trough Hepatitis A Total & IgM Hep Bs Antigen Hep Bs Antibody Hep B Core Total Ab HIV 1&2 Ab/P24 Ag 4thGn 05/19/21 04:45 WBC RBC Hgb Hct MCV MCH MCHC RDW Plt Count PT INR Sodium 136 L Potassium 3.2 L Chloride 108 H Carbon Dioxide 25 BUN 30 H Creatinine 0.98 Estimated GFR 57.7 L BUN/Creatinine Ratio 30.6 H Glucose 102 Calcium 8.1 L Phosphorus Magnesium Vancomycin Peak Vancomycin Trough Hepatitis A Total & IgM Hep Bs Antigen Hep Bs Antibody Hep B Core Total Ab HIV 1&2 Ab/P24 Ag 4thGn [facility] Medical History Adrenal abnormality (~1989) Amenorrhea (~2015) Anemia (~2010) Asthma (~2008) Chicken pox (~1962) Chronic back pain (~2017) Chronic cough Colon polyps (~1999) Fibroids (~2016) Heavy menstrual period (~2010) Kidney disease (~1988) Liver disease (~2018) Low back pain (~2017) Measles (~1964) Menopause (~2016) Mononucleosis (~1978) Mumps (~1965) Painful menstrual periods Proteinuria (~1988) Surgical History Anesthesia History of colonoscopy History of laparoscopy (~1991) Status post biopsy of uterine cervix (~2018) Family History Father Diabetes mellitus History of heart disease Hypertension Colon cancer Hyperlipidemia Mother Ovarian cancer Smoker Grandfather Cancer Grandmother Diabetes mellitus Colon cancer Grandmother Alzheimer's disease Breast cancer Grandfather History of heart disease Family/Other Asthma Social History household members: none Smoking Status: Never smoker alcohol intake: current substance use type: does not use Assessment & Plan Assessment & Plan narrative: 1. Septic shock from probable meningitis -on levophed morning of 05/17, has been dc'd over 24 hours -continue vanco/ceftriaxone/ampicillin/acyclovir -respiratory panel negative -follow up blood cultures -LP attempted, but INR elevated, did not significantly improve with vitamin K, hold off on LP until INR, platelets improved -MRI head and CT head showed no acute process -HIV negative -hepatitis serologies pending 2. Chest pain, acute -initial troponin borderline elevated and then downtrending -ECHO showed no acute process -possibly secondary to pleuritis 3. Morbid obesity -BMI 40.6, follow up as outpatient 4. Thrombocytopenia -likely secondary to sepsis -continue to monitor daily -consider sending HIT ab if continues to drop -no lovenox/heparin for now 5. Elevated INR -etiology unknown -continue to monitor INR daily -ordered for IV vitamin K did not improve INR significantly -fibrinogen level mildly elevated, ruled out DIC Time Spent With Patient Critical Care time: I spent a total of [] minutes of critical care time on this patient's care today; this time is exclusive of procedural time. Quality VTE Deep Vein Thrombosis/Pulmonary Embolism Present on Admission: No
[2021-05-19] MEDS: FUROSEMIDE 20 MG/2 ML VIAL IV (18:28)
[2021-05-20] VITALS (13 sets, daily range): BP systolic 153–173; BP diastolic 69–90; PULSE 68–86; RESP 12–18; TEMP 36.4–36.9; O2SAT 96–99
[2021-05-20] MEDS: cefTRIAXone 2,000 MG in SODIUM CHLORIDE 0.9% 100 ML 200 ML IV ×2 (00:47→12:29)
[2021-05-20] MEDS: DEXTROSE 5% IV ×3 (01:59→18:05)
[2021-05-20] MEDS: WATER IV ×3 (01:59→18:05)
[2021-05-20] MEDS: ACYCLOVIR IV ×3 (01:59→18:05)
[2021-05-20] MEDS: AMPICILLIN 2,000 MG in SODIUM CHLORIDE 0.9% 100 ML 200 ML IV ×6 (02:00→21:22)
[2021-05-20] MEDS: SODIUM CHLORIDE 0.9% FLUSH 10 ML IV ×2 (02:00→21:25)
[2021-05-20] MEDS: VANCOMYCIN 1,000 MG/200 ML PIGGYBACK 200 MG IV ×3 (04:06→20:25)
[2021-05-20] MEDS: FUROSEMIDE 20 MG/2 ML VIAL IV ×2 (05:28→15:58)
[2021-05-20 06:18] LABS: Hematocrit 32.9 % (36-46); Hemoglobin 11.3 g/dL (12.0-16.0); Mean Corpuscular HGB Conc 34.2 % (30-36); Mean Corpuscular Hemoglobin 31.4 PG (26-34); Platelet Count 101 X10^3/uL (150-400); Red Blood Cell Count 3.58 X10^6/uL (4.0-5.2); Red Cell Distribution Width 13.4 % (11.6-14.8); White Blood Cell Count 6.2 X10^3/uL (4.5-11.0)
[2021-05-20 06:26] LABS: INR 1.2 (0.9-1.3); Prothrombin Time 13.3 SECONDS (10.1-12.7)
[2021-05-20 06:32] LABS: BUN Creatinine Ratio 22.7 (6-22); Blood Urea Nitrogen 17 mg/dL (7-17); Calcium 8.2 mg/dL (8.4-10.2); Carbon Dioxide 25 mmol/L (22-32); Chloride 111 mmol/L (98-107); Estimated Glomerular Filt Rate > 60.0 mL/min (>60); Glucose 93 mg/dL (80-110); HEMOLYSIS < 15 (0-50); Potassium 3.8 mmol/L (3.4-5.1); Sodium 141 mmol/L (137-145)
--- NOTE | 2021-05-20 06:34 | PC.NURSE ---
Patients RFA IV was leaking when this RN tried to flush site before administering Lasik IV. IV was removed at 0535.
[2021-05-20] MEDS: LACTOBACILLUS ACIDOPHILUS TABLET 1 EACH PO (08:26)
--- NOTE | 2021-05-20 17:47 | P.PN_ITS ---
Subjective Subjective Date Patient Seen: 05/20/21 Time Patient Seen: 17:47 Interval history: The patient is a 61-year-old female who was admitted to the hospital for neck pain felt to be presumed probable meningitis. The patient was thrombocytopenic and had an elevated INR. As such a lumbar puncture could not be at 10 attempted. She did undergo an MRI of her head and a CT of her head which was negative. Her HIV study was negative. Her hepatitis serologies are still pending. Patient has been empirically treated with vancomycin ceftriaxone ampicillin and acyclovir. I attempted a lumbar puncture today and was unsuccessful. The patient has no further headache. She reports her neck stiffness has improved. Overall she feels significantly improved. Exam Vital Signs (past 8 hours): - 05/20/21 11:13 05/20/21 11:48 05/20/21 15:20 Temperature 97.7 F Pulse Rate 68 Respiratory Rate 18 Blood Pressure 153/75 H Pulse Oximetry 96 97 97 05/20/21 15:32 Temperature 97.7 F Pulse Rate 78 Respiratory Rate 16 Blood Pressure 165/90 H Pulse Oximetry 97 Oxygen Delivery Method Room Air Oxygen Flow Rate 0 Narrative Exam Narrative: Pleasant female lying in bed in no obvious distress [facility] Other: Normocephalic atraumatic, sclerae anicteric, neck is supple, there is no nuchal rigidity Resp Other: Lungs: Clear to auscultation Cardio Other: Cardiac exam: Regular rate and rhythm normal S1-S2 GI Other: Abdomen: Soft nontender nondistended Extrem Other: Extremities: No edema Objective Labs Result Diagrams: 05/20/21 06:00 05/20/21 06:00 Labs: Laboratory Results - last 24 hr 05/18/21 05/20/21 05/20/21 10:03 06:00 06:00 WBC 6.2 RBC 3.58 L Hgb 11.3 L Hct 32.9 L MCV 92.0 MCH 31.4 MCHC 34.2 RDW 13.4 Plt Count 101 L PT 13.3 H INR 1.2 Sodium Potassium Chloride Carbon Dioxide BUN Creatinine Estimated GFR BUN/Creatinine Ratio Glucose Calcium HCV Quantitation Hcv not detected HCV RNA (PCR) IU log10 TNP Hepatitis C Genotype TNP Ref Test Comments Comment 05/20/21 06:00 WBC RBC Hgb Hct MCV MCH MCHC RDW Plt Count PT INR Sodium 141 Potassium 3.8 Chloride 111 H Carbon Dioxide 25 BUN 17 Creatinine 0.75 Estimated GFR > 60.0 BUN/Creatinine Ratio 22.7 H Glucose 93 Calcium 8.2 L HCV Quantitation HCV RNA (PCR) IU log10 Hepatitis C Genotype Ref Test Comments [facility] Medical History Adrenal abnormality (~1989) Amenorrhea (~2015) Anemia (~2010) Asthma (~2008) Chicken pox (~1962) Chronic back pain (~2017) Chronic cough Colon polyps (~1999) Fibroids (~2016) Heavy menstrual period (~2010) Kidney disease (~1988) Liver disease (~2018) Low back pain (~2017) Measles (~1964) Menopause (~2016) Mononucleosis (~1978) Mumps (~1965) Painful menstrual periods Proteinuria (~1988) Surgical History Anesthesia History of colonoscopy History of laparoscopy (~1991) Status post biopsy of uterine cervix (~2018) Family History Father Diabetes mellitus History of heart disease Hypertension Colon cancer Hyperlipidemia Mother Ovarian cancer Smoker Grandfather Cancer Grandmother Diabetes mellitus Colon cancer Grandmother Alzheimer's disease Breast cancer Grandfather History of heart disease Family/Other Asthma Social History household members: none Smoking Status: Never smoker alcohol intake: current substance use type: does not use Assessment & Plan Assessment & Plan narrative: Septic shock from probable meningitis -on levophed morning of 05/17, has been dc'd over 24 hours -continue vanco/ceftriaxone/ampicillin/acyclovir -respiratory panel negative -follow up blood cultures -LP attempted, but INR elevated, did not significantly improve with vitamin K, hold off on LP until INR, platelets improved -MRI head and CT head showed no acute process -HIV negative -hepatitis serologies pending -LP attempted today, this was a dry tap, will arrange for Radiology to perform lumbar puncture under fluoro tomorrow -will consult with Infectious Disease given she has been on 3 antibiotics and antiviral for 4-5 days. Sign clear whether we will get an answer of whether she has meningitis or not. Will repeat CBC and protime in the morning 2. Chest pain, acute -initial troponin borderline elevated and then downtrending -ECHO showed no acute process -possibly secondary to pleuritis 3. Morbid obesity -BMI 40.6, follow up as outpatient -dietary consultation 4. Thrombocytopenia -likely secondary to sepsis -continue to monitor daily -consider sending HIT ab if continues to drop -no lovenox/heparin for now -platelet count 100, will start Lovenox tonight 5. Elevated INR -etiology unknown -continue to monitor INR daily -ordered for IV vitamin K did not improve INR significantly -fibrinogen level mildly elevated, ruled out DIC -INR 1.2 today I have utilized all available [place] to review update and confirm the patient's current medication Time Spent With Patient Critical Care time: I spent a total of [] minutes of critical care time on this patient's care today; this time is exclusive of procedural time. Quality VTE Deep Vein Thrombosis/Pulmonary Embolism Present on Admission: No
[2021-05-20] MEDS: LIDOCAINE 2% INJ MDV 20 ML (17:50)
--- NOTE | 2021-05-20 17:51 | PM.EVENT ---
Event Note Date Patient Seen: 05/20/21 Time Patient Seen: 17:51 Event Note: After informed consent the patient was sterilely prepped and draped. Lumbar puncture was attempted. Was unable to obtain CSF fluid, the procedure was aborted, will follow up with Radiology tomorrow for lumbar puncture under fluoro.
[2021-05-20] MEDS: KETOROLAC 30 MG/ML VIAL IV (21:22)
--- NOTE | 2021-05-20 23:14 | PC.NURSE ---
Patient is on bedrest with bathroom privileges and uses the bedside commode, LS are clear but this RN discussed given the patient Incentive Spirometer
--- NOTE | 2021-05-20 23:16 | PC.NURSE ---
Incentive spirometry was given to patient at 2300 and education was given
[2021-05-21] VITALS (10 sets, daily range): BP systolic 152–174; BP diastolic 68–93; PULSE 62–79; RESP 14–18; TEMP 36.3–37.2; O2SAT 95–100
[2021-05-21] MEDS: cefTRIAXone 2,000 MG in SODIUM CHLORIDE 0.9% 100 ML 200 ML IV ×2 (00:43→14:05)
[2021-05-21] MEDS: DEXTROSE 5% IV ×3 (01:44→18:04)
[2021-05-21] MEDS: ACYCLOVIR IV ×3 (01:44→18:04)
[2021-05-21] MEDS: WATER IV ×3 (01:44→18:04)
[2021-05-21] MEDS: AMPICILLIN 2,000 MG in SODIUM CHLORIDE 0.9% 100 ML 200 ML IV ×5 (01:46→21:03)
[2021-05-21] MEDS: VANCOMYCIN 1,000 MG/200 ML PIGGYBACK 200 MG IV ×3 (04:00→20:02)
[2021-05-21] MEDS: SODIUM CHLORIDE 0.9% FLUSH 10 ML IV (05:24)
[2021-05-21] MEDS: FUROSEMIDE 20 MG/2 ML VIAL IV ×2 (05:24→18:02)
--- NOTE | 2021-05-21 08:33 | DI.RAD.S_ITS ---
PROCEDURE: FL GUIDED LUMBAR PUNCTURE LP INDICATIONS: r/o meningitis COMPARISON: None. TECHNIQUE: The indications, alternatives, benefits, risks, and complications were explained to the patient. Written informed consent was obtained and placed in the chart. The patient was placed in a prone position on the fluoroscopy table, and a level was chosen for percutaneous access under fluoroscopic guidance. The site was prepped and draped in a sterile fashion. After local anaesthetic, a spinal needle was then used to enter the intrathecal space, with return of cerebrospinal fluid. After obtaining sufficient fluid, the needle was then withdrawn, and a bandage applied to the puncture site. FINDINGS: Puncture level: L2-L3 Needle: Spinal needle. Opening pressure: Not requested. CSF volume and description: 14 cubic centimeters of clear CSF Medications: 1% lidocaine for anaesthesia. Complications: None Laboratories: As ordered by referring clinician. IMPRESSION: Successful fluoroscopically guided lumbar puncture. Dictated by: Emili Coto MD, PhD on 05/21/2021 at 15:33 Approved by: Emili Coto MD, PhD on 05/21/2021 at 15:33
[2021-05-21] MEDS: LACTOBACILLUS ACIDOPHILUS TABLET 1 EACH PO ×2 (09:13→21:03)
[2021-05-21 09:18] LABS: Add Manual Diff / Slide Review NO; Basophils Absolute Auto 0 /uL (0-100); Basophils Percent Auto 0.7 % (0-2); Eosinophils Absolute Auto 100 /uL (0-450); Eosinophils Percent Auto 2.1 % (2-4); Hematocrit 32.4 % (36-46); Hemoglobin 11.3 g/dL (12.0-16.0); Lymphocytes Absolute Auto 800 /uL (1100-4500); Lymphocytes Percent Auto 12.3 % (25-40); Mean Corpuscular Hemoglobin 31.7 PG (26-34); Mean Corpuscular Volume 90.5 fL (80-100); Monocytes Absolute Auto 600 /uL (0-900); Monocytes Percent Auto 9.1 % (3-14); Neutrophils Absolute Auto 4800 /uL (1500-7000); Neutrophils Percent Auto 75.8 % (50-75); Platelet Count 131 X10^3/uL (150-400); Red Blood Cell Count 3.58 X10^6/uL (4.0-5.2); Red Cell Distribution Width 13.5 % (11.6-14.8); White Blood Cell Count 6.3 X10^3/uL (4.5-11.0)
[2021-05-21 09:26] LABS: INR 1.2 (0.9-1.3); Prothrombin Time 13.5 SECONDS (10.1-12.7)
[2021-05-21] MEDS: VANCOMYCIN TROUGH 1 REQUEST MISC (13:00)
[2021-05-21 13:27] LABS: Vancomycin Trough 17.1 ug/mL (10-20)
--- NOTE | 2021-05-21 14:02 | P.PN_ITS ---
Subjective Subjective Date Patient Seen: 05/21/21 Interval history: 61 y/o female admitted to the hospital with presumed sepsis secondary to meningitis. She feels significantly improved. She denies any further neck pain or headache. She had a failed L/P yesterday. She is scheduled for a L/P under flouro with radiology today. She is having diarrhea and very concerned about CDIFF as she has had this previously. Exam Vital Signs (past 8 hours): - 05/21/21 07:20 05/21/21 11:00 05/21/21 11:22 Temperature 98.1 F 97.6 F Pulse Rate 70 70 Respiratory Rate 18 18 Blood Pressure 169/68 H 152/93 H Pulse Oximetry 97 98 97 Oxygen Delivery Method Room Air Oxygen Flow Rate 0 Narrative Exam Narrative: Pleasant Female resting comfortably in no acute distress Neck Other: Supple, no adenopathy, no nuchal rigidity Resp Other: Lungs: clear to auscultation Cardio Other: CV: RRR nl Sl S2 GI Other: Abd: soft/ non tender/ non distended Extrem Other: No Edema Objective Labs Result Diagrams: 05/21/21 09:00 05/20/21 06:00 Labs: Laboratory Results - last 24 hr 05/21/21 05/21/21 05/21/21 09:00 09:00 11:50 WBC 6.3 RBC 3.58 L Hgb 11.3 L Hct 32.4 L MCV 90.5 MCH 31.7 MCHC 35.0 RDW 13.5 Plt Count 131 L Neut % (Auto) 75.8 H Lymph % (Auto) 12.3 L [place] % (Auto) 9.1 Eos % (Auto) 2.1 Baso % (Auto) 0.7 Neut # (Auto) 4800 Lymph # (Auto) 800 L [place] # (Auto) 600 Eos # (Auto) 100 Baso # (Auto) 0 PT 13.5 H INR 1.2 Vancomycin Trough 17.1 PFSH Medical History Adrenal abnormality (~1989) Amenorrhea (~2015) Anemia (~2010) Asthma (~2008) Chicken pox (~1962) Chronic back pain (~2017) Chronic cough Colon polyps (~1999) Fibroids (~2016) Heavy menstrual period (~2010) Kidney disease (~1988) Liver disease (~2018) Low back pain (~2018) Measles (~1965) Menopause (~2017) Mononucleosis (~1978) Mumps (~1965) Painful menstrual periods Proteinuria (~1988) Surgical History Anesthesia History of colonoscopy History of laparoscopy (~1991) Status post biopsy of uterine cervix (~2018) Family History Father Diabetes mellitus History of heart disease Hypertension Colon cancer Hyperlipidemia Mother Ovarian cancer Smoker Grandfather Cancer Grandmother Diabetes mellitus Colon cancer Grandmother Alzheimer's disease Breast cancer Grandfather History of heart disease Family/Other Asthma Social History household members: none Smoking Status: Never smoker alcohol intake: current substance use type: does not use Assessment & Plan Assessment & Plan narrative: Assessment & Plan narrative: Septic shock from probable meningitis -on levophed morning of 05/17, has been dc'd over 24 hours -continue vanco/ceftriaxone/ampicillin/acyclovir -respiratory panel negative -follow up blood cultures -LP attempted, but INR elevated, did not significantly improve with vitamin K, hold off on LP until INR, platelets improved -MRI head and CT head showed no acute process -HIV negative -hepatitis serologies pending -LP attempted today, this was a dry tap, will arrange for Radiology to perform lumbar puncture under fluoro tomorrow -will consult with Infectious Disease given she has been on 3 antibiotics and antiviral for 4-5 days.? Sign clear whether we will get an answer of whether she has meningitis or not. Will repeat CBC and protime in the morning -Interventional Radiology to repeat L/P today -will await cell count and culture, continue antibiotics and antiviral for now -will discuss with Infectious Disease once L/P completed 2. Chest pain, acute -initial troponin borderline elevated and then downtrending -ECHO showed no acute process -possibly secondary to pleuritis -no further chest pain 3. Morbid obesity -BMI 40.6, follow up as outpatient -dietary consultation 4. Thrombocytopenia -likely secondary to sepsis -continue to monitor daily -consider sending HIT ab if continues to drop -no lovenox/heparin for now -platelet count 100, will start Lovenox tonight -plt count up to 131 today 5. Elevated INR -etiology unknown -continue to monitor INR daily -ordered for IV vitamin K did not improve INR significantly -fibrinogen level mildly elevated, ruled out DIC -INR 1.2 today, still 1/2 today Time Spent With Patient Critical Care time: I spent a total of [] minutes of critical care time on this patient's care today; this time is exclusive of procedural time. Quality VTE Deep Vein Thrombosis/Pulmonary Embolism Present on Admission: No
[2021-05-21] MEDS: VANCOMYCIN PEAK 1 REQUEST MISC (15:30)
[2021-05-21] MEDS: KETOROLAC 30 MG/ML VIAL IV (15:53)
[2021-05-21 16:16] LABS: Vancomycin Peak 26.5 ug/mL (20-40)
[2021-05-21 18:00] LABS: Cryptococcus neoformans/gattii Not Detected (Not Detect); Enterovirus Not Detected (Not Detect); Escherichia coli K1 Not Detected (Not Detect); Haemophilus influenzae Not Detected (Not Detect); Herpes simplex virus 1 Not Detected (Not Detect); Herpes simplex virus 2 Not Detected (Not Detect); Human herpesvirus 6 Not Detected (Not Detect); Human parechovirus Not Detected (Not Detect); Listeria monocytogenes Not Detected (Not Detect); Neisseria meningitidis Not Detected (Not Detect); Streptococcus agalactiae Not Detected (Not Detect); Streptococcus pneumoniae Not Detected (Not Detect); Varicella Zoster Virus Not Detected (Not Detecte)
[2021-05-21] MEDS: ACETAMINOPHEN 325 MG TABLET 650 MG PO (18:04)
[2021-05-21] MEDS: SODIUM CHLORIDE 0.9% 250 ML 21 ML IV (18:19)
[2021-05-21 19:15] LABS: Appearance CSF Clear (Clear); CSF Tube Number 4; Color CSF Colorless (Colorless); Glucose CSF 52 mg/dL (40-70); Mononuclear WBC CSF 100 %; Red Blood Cell CSF 1 RBC /uL; Total Protein CSF 48 mg/dL (12-60); White Blood Cell CSF 4 MONO/uL (0-5)
[2021-05-21 19:16] LABS: Polynuclear WBC CSF 0 %
[2021-05-22 00:03] VITALS: BP 135/69; PULSE 64; RESP 18; TEMP 35.8; O2SAT 96
[2021-05-22 01:10] VITALS: PULSE 64; RESP 16; O2SAT 96
[2021-05-22] MEDS: WATER IV (01:14)
[2021-05-22] MEDS: DEXTROSE 5% IV (01:14)
[2021-05-22] MEDS: ACYCLOVIR IV (01:14)
[2021-05-22] MEDS: cefTRIAXone 2,000 MG in SODIUM CHLORIDE 0.9% 100 ML 200 ML IV (01:15)
[2021-05-22] MEDS: AMPICILLIN 2,000 MG in SODIUM CHLORIDE 0.9% 100 ML 200 ML IV ×2 (02:25→05:25)
[2021-05-22 03:25] VITALS: BP 165/72; PULSE 71; RESP 18; TEMP 36.1; O2SAT 95
[2021-05-22 03:58] LABS: Clostridium Difficile Tox PCR Negative for C. diff (Negative)
[2021-05-22] MEDS: VANCOMYCIN 1,000 MG/200 ML PIGGYBACK 200 MG IV (04:27)
[2021-05-22] MEDS: FUROSEMIDE 20 MG/2 ML VIAL IV (06:45)
[2021-05-22] MEDS: ACETAMINOPHEN 325 MG TABLET 650 MG PO (06:45)
[2021-05-22 07:30] VITALS: O2SAT 96
--- NOTE | 2021-05-22 08:56 | PM.DS.1 ---
History of Present Illness History of Present Illness Date Patient Seen: 05/22/21 Time Patient Seen: 08:56 Chief complaint: Left arm pain/neck pain today Narrative: Roxanne Vizcaino is a 61-year-old female with a medical history of asthma, kidney disease, hyperlipidemia, obesity, and liver disease who presented to the emergency department after experiencing severe joint pain throughout her body burning tingling in hands and feet headache for the past 24 hours then this afternoon she developed chest pain the feeling of an elephant sitting on her chest that radiated down to her left arm the patient came to the emergency room.? The patient states that the chest pain did not change with movement or activity.? The chest pain resolved before being admitted to the ED. in the ED the patient was found to be tachycardic 111-120s blood pressures approximately 140/80.? EKG demonstrated sinus tachycardia with a rate of [address] or T-wave changes.? Patient demonstrated febrile 101.1,? white count of 12.6 with neutrophils 11,500, platelets 131 glucose 130, D-dimer was elevated at 317, CTA was negative for PE or acute pulmonary processes, chest x-ray was negative for acute cardiopulmonary processes, BNP was 1960, lipase WNL, initial troponin was 0.038 demonstrating myocardial injury greater than 99 %, 2nd troponin 0.032, 3rd 0.023.? Urine was negative.? Patient reports having a headache, sore throat, all over body aches which is new for her severe joint pain, moderate neck pain and stiffness, difficulty with flextion, chest pain has resolved, patient denies loss of smell or taste, and has had a good appetite, no abdominal pain or vomiting.? Had positive nausea, no diaphoresis, she did have shortness of breath when she was having chest pain but is resolved.? Patient denies cough, blood in urine or stool, recent illness injury or trauma, no travel, no exposure to ill individuals.? Patient only takes vitamins does not take any prescribed medications.? Patient has been vaccinated against COVID-19. Patient admitted for chest pain, myocardial injury with troponin greater than 99th percentile, elevated blood pressure, and meets SIRS criteria, leukocytosis of unknown etiology-suspected sepsis/meningitis. Discharge Providers Provider Date of admission: 05/16/21 20:08 Discharge Date: 05/22/21 Primary care physician: KIMI Wynn Consults: 05/17/21 01:20 Consult to Tele-hot tamale man Routine Comment: Consulting Provider: Florentin [employer] Reason for consultation: [employer] Has provider been notified: Yes Discharge provider: Isis Wang MD Summary Hospital Course Discharge Diagnosis: 1. Probable Viral Meningitis 2. Severe Sepsis, with Septic Shock required pressors 3. Atypical Chest Pain 4. Asthma Hospital Course: Patient was admitted to the hospital for chest pain, headache, fever and myalgias. She developed a stiff neck along with headache. She was hypotensive and required pressors. Her Chest Pain resolved. She was treated empirically with antibiotics. The patient was thrombocytopenic and therefore could not get Lumbar puncture. She was also found to have a negative MRI, TTE should LV normal in size and function, LV Systolic function was normal with an EF of 55-50%. Right ventricle had normal function and systolic presssure. She made slow but steady progress. She also had an elevated INR which made LP not possible. She received Vitamin K with improvement of her INR. She had improvement in her headache, achiness, and neck stiffness. Her platelet count improved and L/P was attempted but was unsuccessful. The following day she underwent I/R guided L/P, CSF fluid was clear, glucose was 52, protein 48, 4 WBC's 100% mononuclear cells 1 RBC. The patient had been placed on Ceftriaxone, Vancomycin, Acylovir, and Ampicillin empirically. She had diarrhea but CDIFF was negative. As her CSF fluid was bland, and revealed no evidence of bacterial meningitis, and she felt significantly improved after 6 days she was deemed appropriate for discharge home. Patient felt much better, headache, neck stiffness, chest pain had resolved. She was discharged home with plans to follow up with her PCP next week. Status at Discharge Cognitive/behavioral status at discharge: oriented Functional status at discharge: independent ambulation Overall status at discharge: patient is progressing back to baseline Exam Vital Signs (past 8 hours): - 05/22/21 01:10 05/22/21 03:25 Temperature 97.0 F L Pulse Rate 64 71 Respiratory Rate 16 18 Blood Pressure 165/72 H Pulse Oximetry 96 95 Oxygen Delivery Method Room Air Oxygen Flow Rate 0 Narrative Exam Narrative: pleasant female in no acute distress Neck Other: supple, no nuchal rigidity Resp Other: Lungs: clear to auscultation Cardio Other: RRR nl Sl S2 GI Other: Abd: soft/ non tender/ non distended Extrem Other: no edema Objective Labs Result Diagrams: 05/21/21 09:00 05/20/21 06:00 Labs: Laboratory Results - last 24 hr 05/19/21 05/21/21 05/21/21 15:33 09:00 09:00 WBC 6.3 RBC 3.58 L Hgb 11.3 L Hct 32.4 L MCV 90.5 MCH 31.7 MCHC 35.0 RDW 13.5 Plt Count 131 L Neut % (Auto) 75.8 H Lymph % (Auto) 12.3 L Bartholomew % (Auto) 9.1 Eos % (Auto) 2.1 Baso % (Auto) 0.7 Neut # (Auto) 4800 Lymph # (Auto) 800 L Bartholomew # (Auto) 600 Eos # (Auto) 100 Baso # (Auto) 0 PT 13.5 H INR 1.2 CSF Tube Number Cancelled CSF Volume Cancelled CSF Appearance Cancelled CSF Color Cancelled CSF WBC Cancelled CSF RBC Cancelled CSF Mononuclear WBCs Cancelled CSF Polynuclear WBCs Cancelled CSF Glucose Cancelled CSF Total Protein Cancelled CSF C.neoform/gat PCR CSF CMV DNA (PCR) CSF Enterovirus (PCR) CSF E. coli (PCR) CSF H. influenzae (PCR) CSF HSV I (PCR) CSF HSV II (PCR) CSF HHV 6 (PCR) CSF L.monocytogenes PCR CSF N. meningitidis PCR CSF Parechovirus (PCR) CSF S. agalactiae (PCR) CSF S. pneumoniae (PCR) CSF VZV (PCR) Vancomycin Peak Vancomycin Trough C. difficile Tox (PCR) 05/21/21 05/21/21 05/21/21 11:50 15:20 15:33 WBC RBC Hgb Hct MCV MCH MCHC RDW Plt Count Neut % (Auto) Lymph % (Auto) Bartholomew % (Auto) Eos % (Auto) Baso % (Auto) Neut # (Auto) Lymph # (Auto) Bartholomew # (Auto) Eos # (Auto) Baso # (Auto) PT INR CSF Tube Number 4 CSF Volume 7 ml CSF Appearance Clear CSF Color Colorless CSF WBC 4 CSF RBC 1 CSF Mononuclear WBCs 100 CSF Polynuclear WBCs 0 CSF Glucose CSF Total Protein CSF C.neoform/gat PCR CSF CMV DNA (PCR) CSF Enterovirus (PCR) CSF E. coli (PCR) CSF H. influenzae (PCR) CSF HSV I (PCR) CSF HSV II (PCR) CSF HHV 6 (PCR) CSF L.monocytogenes PCR CSF N. meningitidis PCR CSF Parechovirus (PCR) CSF S. agalactiae (PCR) CSF S. pneumoniae (PCR) CSF VZV (PCR) Vancomycin Peak 26.5 Vancomycin Trough 17.1 C. difficile Tox (PCR) 05/21/21 05/21/21 05/21/21 15:33 15:35 23:59 WBC RBC Hgb Hct MCV MCH MCHC RDW Plt Count Neut % (Auto) Lymph % (Auto) Bartholomew % (Auto) Eos % (Auto) Baso % (Auto) Neut # (Auto) Lymph # (Auto) Bartholomew # (Auto) Eos # (Auto) Baso # (Auto) PT INR CSF Tube Number CSF Volume CSF Appearance CSF Color CSF WBC CSF RBC CSF Mononuclear WBCs CSF Polynuclear WBCs CSF Glucose 52 CSF Total Protein 48 CSF C.neoform/gat PCR Not detected CSF CMV DNA (PCR) Not detected CSF Enterovirus (PCR) Not detected CSF E. coli (PCR) Not detected CSF H. influenzae (PCR) Not detected CSF HSV I (PCR) Not detected CSF HSV II (PCR) Not detected CSF HHV 6 (PCR) Not detected CSF L.monocytogenes PCR Not detected CSF N. meningitidis PCR Not detected CSF Parechovirus (PCR) Not detected CSF S. agalactiae (PCR) Not detected CSF S. pneumoniae (PCR) Not detected CSF VZV (PCR) Not detected Vancomycin Peak Vancomycin Trough C. difficile Tox (PCR) Negative for c. diff [facility] Medical History Adrenal abnormality (~1989) Amenorrhea (~2015) Anemia (~2010) Asthma (~2008) Chicken pox (~1962) Chronic back pain (~2017) Chronic cough Colon polyps (~1999) Fibroids (~2016) Heavy menstrual period (~2010) Kidney disease (~1988) Liver disease (~2018) Low back pain (~2017) Measles (~1965) Menopause (~2016) Mononucleosis (~1978) Mumps (~1965) Painful menstrual periods Proteinuria (~1988) Surgical History Anesthesia History of colonoscopy History of laparoscopy (~1991) Status post biopsy of uterine cervix (~2018) Family History Father Diabetes mellitus History of heart disease Hypertension Colon cancer Hyperlipidemia Mother Ovarian cancer Smoker Grandfather Cancer Grandmother Diabetes mellitus Colon cancer Grandmother Alzheimer's disease Breast cancer Grandfather History of heart disease Family/Other Asthma Social History household members: none Smoking Status: Never smoker alcohol intake: current substance use type: does not use Discharge Assessment & Plan Assessment and Plan Assessment: 1. Septic Shock 2. Probable Viral Meningitis 3. Asthma 4. Morbid Obesity 5.Atypical Chest Pain 6. Diarrhea, no evidence of Cdiff Plan of Treatment: Discharge Home F/u with Primary Care PRovider next week Discharge Plan Discharge Plan Patient Disposition: Home Discharge orders & Medications Prescriptions: Continued multivitamin [Multiple Vitamins] 1 EACH tablet 1 tab PO QDAY Qty: 0 0RF albuterol sulfate 90 mcg/actuation HFA aerosol inhaler 2 puff inhalation Q4-6H PRN (Reason: shortness of breath or wheezing) Qty: 18 3RF Follow up/Referrals: Piero Sam ARNP [Primary Care Provider] - Discharge Health Status Multidrug resistant organism: No MDRO Diet/Activity/Treatments Diet: Diet as Tolerated Skin/Wound/Dressing Care Report to your healthcare provider any signs of infection, such as:: chills, fever Visit Report/Discharge Packet Instructions: Viral Meningitis, DI for Viral Meningitis -- Adult, DI for Sepsis -- Adult Discharge Data Primary Care Provider: Piero Sam Quality VTE Deep Vein Thrombosis/Pulmonary Embolism Present on Admission: No
[2021-05-22 09:02] VITALS: BP 179/71; PULSE 62; RESP 16; TEMP 36.3; O2SAT 98
[2021-05-22] MEDS: LACTOBACILLUS ACIDOPHILUS TABLET 1 EACH PO (09:17)
[2021-05-22 12:31] VITALS: O2SAT 96
--- NOTE | 2021-05-22 13:25 | PC.NURSE ---
Discharge: Feels ready to d/c to home. Diet angel w/out problems. No pain. Vds w/out diff. D/c packet given and reviewed. Questions answered. Pt d/c home via auto w/friend.
== END 2021-05-22 11:00 | disposition home or self-care (01) | DRG 75 ==
LOC: ED 19:58 → ICU 05-17 04:35 → AC 05-17 11:55 → ICU 05-17 12:04 → AC 05-21 09:17 → ICU 05-21 14:37
PROVIDERS: Emergency Medicine; Internal Medicine; Admitting Provider Nurse Practitioner Family; Emergency Provider Emergency Medicine; PCP Registered Nurse; Referring Provider Emergency Medicine; Visit Provider Nurse Practitioner Family
DX: A87.9 Viral meningitis, unspecified (principal); R65.21 Severe sepsis with septic shock; A41.89 Other specified sepsis; E87.2 Acidosis; I5A Non-ischemic myocardial injury (non-traumatic); Z68.41 Body mass index [BMI] 40.0-44.9, adult; D68.9 Coagulation defect, unspecified; R07.89 Other chest pain; D69.59 Other secondary thrombocytopenia; E66.01 Morbid (severe) obesity due to excess calories; R19.7 Diarrhea, unspecified; J45.909 Unspecified asthma, uncomplicated; Z20.822 Contact with and (suspected) exposure to COVID-19; Z66 Do not resuscitate
CPT/HCPCS: 36415; 36592; 62270; 70450; 70553; 71045; 71275; 76000; 80048; 80053; 80061; 80076; 80202; 81003; 81015; 82550; 82945; 83036; 83605; 83690; 83735; 83880; 84100; 84145; 84157; 84443; 84484; 85025; 85027; 85049; 85379; 85384; 85610; 85651; 85730; 86140; 86704; 86706; 86708; 87040; 87086; 87340; 87389; 87493; 87522; 87633; 87635; 87797; 87798; 89051; 93005; 93010; 93306; 94760; 99284; C9803; J0290; J0696; J1642; J1720; J1885; J1940; J3430; Q9967

== ENCOUNTER → 2022-04-27 13:56 | Outpatient (CLI) | payer OTHER, SELFPAY ==
[2021-05-16 20:50] VITALS: BMI 41.9
--- NOTE | 2022-04-27 13:57 | DI.MG.S_ITS ---
BILATERAL DIGITAL SCREENING MAMMOGRAM 3D/2D WITH CAD: 04/27/2022 CLINICAL: Routine screening. Family history of breast cancer. Comparison is made to exams dated: 07/24/2018 mammogram and 07/04/2016 mammogram - [facility]. There are scattered areas of fibroglandular density in both breasts (category b / 25%-50% glandular tissue). Current study was also evaluated with a Computer Aided Detection (CAD) system. No significant masses, calcifications, or other findings are seen in either breast. There has been no significant interval change. IMPRESSION: NEGATIVE There is no mammographic evidence of malignancy. A 1 year screening mammogram is recommended. Based on the Tyrer Cuzick model (a risk assessment model) the patient's lifetime risk is 11.4% and her 10 year risk is 5.0%. According to the ACR, ACS, and NCCN guidelines, an annual breast MRI exam along with mammogram is recommended if the patient's lifetime risk is 20% or greater. This exam was interpreted at Station ID: [id number]. NOTE: For mammograms, a report in lay terms will be sent to the patient. Approximately 15% of breast malignancies will not be visualized mammographically. In the management of a palpable breast mass, a negative mammogram must not discourage biopsy of a clinically suspicious lesion. Electronically Signed By: Wyatt woodard/roseline:04/29/2022 20:11:04 letter sent: Normal Exam ACR BI-RADS Category 1: Negative [id number]
== END ==
PROVIDERS: Referring Provider Student in an Organized Health Care Education/Training Program; Visit Provider Student in an Organized Health Care Education/Training Program
DX: Z12.31 Encounter for screening mammogram for malignant neoplasm of breast (principal); Z80.3 Family history of malignant neoplasm of breast
CPT/HCPCS: 77063; 77067

== ENCOUNTER → 2023-11-13 08:28 | Outpatient (CLI) | payer OTHER, SELFPAY ==
[2021-05-16 20:50] VITALS: BMI 41.9
--- NOTE | 2023-11-13 | DI.MG.S_ITS ---
BILATERAL DIGITAL SCREENING MAMMOGRAM 3D/2D WITH CAD: 11/13/2023 CLINICAL: Routine screening. Family history of breast cancer. Comparison is made to exams dated: 04/27/2022 mammogram, 07/24/2018 mammogram, and 07/04/2016 mammogram - [facility]. There are scattered areas of fibroglandular density in both breasts (category b / 25%-50% glandular tissue). Current study was also evaluated with a Computer Aided Detection (CAD) system. There is a focal asymmetry in the left breast central to the nipple anterior depth. This is more prominent. No other significant masses, calcifications, or other findings are seen in either breast. IMPRESSION: INCOMPLETE: NEEDS ADDITIONAL IMAGING EVALUATION The focal asymmetry in the left breast is indeterminate. Additional views with possible ultrasound are recommended. Based on the Tyrer Cuzick model (a risk assessment model) the patient's lifetime risk is 11.1% and her 10 year risk is 5.0%. According to the ACR, ACS, and NCCN guidelines, an annual breast MRI exam along with mammogram is recommended if the patient's lifetime risk is 20% or greater. This exam was interpreted at Station ID: [id number]. NOTE: For mammograms, a report in lay terms will be sent to the patient. Approximately 15% of breast malignancies will not be visualized mammographically. In the management of a palpable breast mass, a negative mammogram must not discourage biopsy of a clinically suspicious lesion. Electronically Signed By: Cj dudley/roseline:11/14/2023 16:42:34 letter sent: Additional Imaging Needed ACR BI-RADS Category 0: Incomplete [id number]
== END ==
LOC: MAMMO 08:30
PROVIDERS: PCP Student in an Organized Health Care Education/Training Program; Referring Provider Student in an Organized Health Care Education/Training Program; Visit Provider Student in an Organized Health Care Education/Training Program
DX: Z12.31 Encounter for screening mammogram for malignant neoplasm of breast (principal); Z80.3 Family history of malignant neoplasm of breast; R92.323 Mammographic fibroglandular density, bilateral breasts
CPT/HCPCS: 77063; 77067

== ENCOUNTER → 2023-12-22 09:03 | Outpatient (CLI) | payer OTHER, SELFPAY ==
[2021-05-16 20:50] VITALS: BMI 41.9
== END ==
PROVIDERS: PCP Student in an Organized Health Care Education/Training Program; Visit Provider Physician Assistant
DX: R30.0 Dysuria (principal)
CPT/HCPCS: 87086